=== PATIENT | female | born 1975 | race Caucasian/White ===

== ENCOUNTER 2019-10-19 15:41 | Emergency (ER) | payer OTHER, SELFPAY ==
--- NOTE | ~2019-10-19 | XR_ITS ---
EXAMINATION: XR chest 2V EXAM DATE: 10/19/2019 16:24 INDICATION: Mid chest pain, cough. History of bronchitis. TECHNIQUE: Frontal and lateral projections of the chest obtained and reviewed. There is no prior suzanna dy for comparison. FINDINGS: The lungs are clear. There are no pleural effusions. The cardiomediastinal silhouette is within normal limits. There is no pneumothorax suspected. The bones and soft tissues are unremarkab le. IMPRESSION: Normal chest x-ray exam. Reviewed, dictated and finalized at location A. IMPRESSION: Normal chest x-ray exam.
[2019-10-19 15:41] VITALS: BP 133/84; PULSE 99; RESP 18; TEMP 36.9; O2SAT 100
--- NOTE | 2019-10-19 15:47 | ECG_ITS ---
Measurements Intervals [place] Rate: 87 P: 13 ND: 162 QRS: 6 QRSD: 81 T: -4 QT: 344 QTc: 415 Interpretive Statements SINUS RHYTHM BORDERLINE T WAVE ABNORMALITY- ANT/INF LEADS BORDERLINE ECG Electronically Signed On 10-19-2019 16:02:53 CDT by Nimesh House D.O.
[2019-10-19 15:49] VITALS: BP 133/84; PULSE 99; RESP 18; TEMP 36.9; O2SAT 100
[2019-10-19 16:18] LABS: Basophils Percent Auto 0.5 % (0.2-1.2); Eosinophils Absolute Auto 0.1 K/mm3 (0-0.3); Eosinophils Percent Auto 2.1 % (0-4.4); Hematocrit 35.2 % (37.0-47.0); Hemoglobin 11.9 g/dL (12.0-15.0); Immature Granulocyte Absolute 0.02 K/mm3 (0.00-0.031); Immature Granulocyte Percent A 0.3 % (0-0.5); Lymphocytes Absolute Auto 2.01 K/mm3 (0.9-3.2); Lymphocytes Percent Auto 31.9 % (18.3-44.2); Mean Corpuscular HGB Conc 33.8 g/dl (32-36); Mean Corpuscular Hemoglobin 29.8 pg (26-34); Mean Corpuscular Volume 88.2 fl (80-100); Mean Platelet Volume 10.2 fl (7.4-10.4); Monocytes Absolute Auto 0.5 K/mm3 (0.1-0.6); Monocytes Percent Auto 7.8 % (2.6-8.5); Neutrophils Absolute Auto 3.6 K/mm3 (1.3-6.7); Neutrophils Percent Auto 57.4 % (45.5-73.1); Platelet Count Result 296 k/mm3 (150-375); Red Blood Count 3.99 M/mm3 (4.2-5.4); Red Cell Distribution Width 13.7 % (11.5-14.5); White Blood Count 6.3 K/mm3 (4.5-10.0)
[2019-10-19] MEDS: ASPIRIN 81 MG CHEWABLE TABLET 324 MG PO (16:20)
[2019-10-19 16:27] LABS: Prothrombin Time 12.6 Seconds (11.1-14.7)
[2019-10-19 16:28] LABS: Partial Thromboplastin Time 20.9 SECONDS (22.3-36.8)
[2019-10-19 16:30] LABS: Anion Gap 11.8 mmol/L (7-16); Blood Urea Nitrogen 19 mg/dL (7-17); Carbon Dioxide 26 mmol/L (22-30); Chloride 96 mmol/L (98-107); Estimated CRCL calculation 93 ml/min; Estimated Glomerular Filt Rate > 60; Glucose 447 mg/dL (65-105); Potassium 3.8 mmol/L (3.4-5.0); Sodium 130 mmol/L (137-145)
[2019-10-19 16:42] LABS: Troponin I < 0.012 ng/mL (0.000-0.034)
--- NOTE | 2019-10-19 16:59 | ED.CHESTPAIN ---
HPI - Chest Pain General Chief Complaint: Chest Pain Stated Complaint: cp Time Seen by Provider: 10/19/19 16:06 History of Present Illness HPI narrative: Patient is a 43-year-old female who presents ER with some chest discomfort. Central and in her side. Worse with deep breath. Initially started couple nights ago was associated with fever greater than 100.4 ?F. Denies runny nose/sore throat/productive cough and has had some cough. No known sick contacts. No sinus congestion. She is without nausea/vomiting. No exertional component to her discomfort. Has not taken any pain medication. Related Data Home Medications Medication Instructions Recorded Confirmed Ozempic 1 mg SUBCUT WEEKLY 02/06/19 02/15/19 aspirin [Adult Low Dose Aspirin] 81 mg PO DAILY 02/06/19 02/15/19 valacyclovir [Valtrex] 500 mg PO DAILY 02/06/19 02/15/19 amitriptyline 10/19/19 chlorthalidone 10/19/19 diclofenac sodium PO 10/19/19 10/19/19 insulin aspart (niacinamide) unit SUBCUT 10/19/19 10/19/19 [Fiasp Penfill U-100 Insulin] Allergies Allergy/AdvReac Type Severity Reaction Status Date / Time clindamycin Allergy Mild esphogitis Verified 10/19/19 15:53 pravastatin Allergy Mild Cramping Verified 10/19/19 15:53 of the Muscles rosuvastatin Allergy Mild Cramping Verified 10/19/19 15:53 of the Muscles Review of Systems Review of Systems: All systems reviewed & are unremarkable except as noted in HPI and below Constitutional: Constitutional: Denies chills, Denies fever(s) and Denies weakness ENT: Denies nasal congestion and Denies sore throat Cardiovascular: Cardiovascular: Reports chest pain, Denies rapid heart rate and Denies radiating jaw, neck or arm pain Respiratory: Respiratory: Reports cough and Denies dyspnea Gastrointestinal: Gastrointestinal: Denies abdominal pain, Denies nausea and Denies vomiting COUNT INCLUDES THE [facility] Past Medical History Medical History (Updated 10/19/19 @ 18:04 by Zenon Coelho MD) Anxiety Bronchitis Chronic GERD Diabetes Insulin pump Obesity (BMI 30-39.9) Psoriasis Surgical History Surgical History (Updated 10/19/19 @ 17:59 by Zenon Coelho MD) No pertinent past surgical history Social History Social History Alcohol intake: current Gender identity (if verbalized by the patient): Female Course Course Emergency Course: Unremarkable troponin and d-dimer. Patient now reports that she had a COVID exposure as a friend she has just sent her text message that she was positive. Last exposure to the patient was 12 days ago however given the patient's discomfort and her recent fever will go ahead and swab her now that she has a known exposure. Patient is aware that she should self isolate at home and follow-up with her PCP. Vital Signs Vital signs: Vital Signs Temperature 98.5 F 10/19/19 15:41 Pulse Rate 99 10/19/19 15:41 Respiratory Rate 18 10/19/19 15:41 Blood Pressure 133/84 10/19/19 15:41 Pulse Oximetry 100 10/19/19 15:41 Temperature 98.5 F 10/19/19 15:49 Pulse Rate 99 10/19/19 15:49 Respiratory Rate 18 10/19/19 15:49 Blood Pressure 133/84 10/19/19 15:49 Pulse Oximetry 100 10/19/19 15:49 MDM - Chest Pain Lab Data Result diagrams: 10/19/19 16:12 10/19/19 16:12 Labs: Lab Results 10/19/19 10/19/19 10/19/19 Range/Units 16:12 16:12 16:12 WBC 6.3 (4.5-10.0) K/mm3 RBC 3.99 L (4.2-5.4) M/mm3 Hgb 11.9 L (12.0-15.0) g/dL Hct 35.2 L (37.0-47.0) % MCV 88.2 (80-100) fl MCH 29.8 (26-34) pg MCHC 33.8 (32-36) g/dl RDW 13.7 (11.5-14.5) % Plt Count 296 (150-375) k/mm3 MPV 10.2 (7.4-10.4) fl Immature Gran % (Auto) 0.3 (0-0.5) % Neut % (Auto) 57.4 (45.5-73.1) % Lymph % (Auto) 31.9 (18.3-44.2) % Evans % (Auto) 7.8 (2.6-8.5) % Eos % (Auto) 2.1 (0-4.4) % Baso % (Auto) 0.5 (0.2-1.2
[2019-10-19] MEDS: KETOROLAC 30 MG/ML VIAL (*BKC) IV PUSH (17:28)
[2019-10-19 17:32] VITALS: BP 125/64; PULSE 81; PULSE 84; RESP 19; O2SAT 98; O2SAT 99
[2019-10-19 17:36] LABS: D Dimer 0.26 ug/mL (<0.48)
[2019-10-20 14:10] LABS: SARS-CoV-2 RNA PCR Negative
== END 2019-10-19 18:21 | disposition home or self-care (01) ==
PROVIDERS: Emergency Provider Emergency Medicine; PCP Family Medicine
DX: R09.1 Pleurisy (principal); Z20.828 Contact with and (suspected) exposure to other viral communicable diseases; F41.9 Anxiety disorder, unspecified; K21.9 Gastro-esophageal reflux disease without esophagitis; E11.9 Type 2 diabetes mellitus without complications; Z79.4 Long term (current) use of insulin; Z96.41 Presence of insulin pump (external) (internal); E66.9 Obesity, unspecified; Z68.29 Body mass index [BMI] 29.0-29.9, adult
CPT/HCPCS: 36415; 71046; 80048; 84484; 85025; 85380; 85610; 85730; 87635; 93005; 96374; 99284; A9270; C9803; J1885; U0003

== ENCOUNTER 2019-12-26 10:23 | Outpatient (CLI) | payer OTHER, SELFPAY ==
--- NOTE | ~2019-12-26 | XR_ITS ---
EXAMINATION: XR shoulder LT min 2V INDICATION: Left shoulder pain TECHNIQUE: Four views of the left shoulder are submitted. COMPARISON: None FINDINGS: Normal alignment. No fracture. Glenohumeral and acromioclavicular joint spaces are normal. Soft tissues are unremarkable. IMPRESSION: 1. No acute osseous abnormality. Reviewed, dictated and finalized at location A.
== END 2019-12-26 10:24 | disposition home or self-care (01) ==
LOC: ANHIMG 10:34
PROVIDERS: PCP Family Medicine; Visit Provider Physician Assistant
DX: M25.512 Pain in left shoulder (principal)
CPT/HCPCS: 73030

== ENCOUNTER 2020-02-14 06:58 | Outpatient (NON) | payer OTHER, SELFPAY ==
[2020-02-14 18:22] LABS: SARS-CoV-2 RNA PCR Negative
== END 2020-02-14 06:59 ==
LOC: ANHCOVIDDT 06:59
PROVIDERS: Visit Provider Physician Assistant
DX: Z20.828 Contact with and (suspected) exposure to other viral communicable diseases (principal); R09.89 Other specified symptoms and signs involving the circulatory and respiratory systems
CPT/HCPCS: 87635; C9803; U0003

== ENCOUNTER 2020-02-20 06:57 | Outpatient (NON) | payer OTHER, SELFPAY ==
[2020-02-20 23:33] LABS: SARS-CoV-2 RNA PCR Negative
== END 2020-02-20 06:58 ==
LOC: ANHCOVIDDT 07:11
PROVIDERS: Visit Provider Family Medicine
DX: Z20.828 Contact with and (suspected) exposure to other viral communicable diseases (principal)
CPT/HCPCS: 87635; C9803; U0003

== ENCOUNTER 2020-09-01 19:55 | Emergency (ER) | payer OTHER, MEDICAID, SELFPAY ==
[2020-09-01 20:07] VITALS: BP 147/86; PULSE 104; RESP 16; TEMP 36.7; O2SAT 100
--- NOTE | 2020-09-01 20:46 | ED.GENADULT ---
HPI - General Adult General Chief complaint: Skin/Abscess/Foreign Body Stated complaint: cyst on buttock/left armpit Time Seen by Provider: 09/01/20 20:46 Source: patient and RN notes reviewed Mode of arrival: ambulatory Limitations: no limitations History of Present Illness HPI narrative: 44-year-old female presents with complaints of redness, tenderness, and swelling to the left armpit for the past 30 days. ?Suzanne reports increasing symptoms over the past 3-4 days with a new area to LT buttock. Prid and warm compressions without relief. ?Tender to touch. ?No drainage. ?Denies history of skin abscess or MRSA. ?No fever or chills. ?No abdominal pain, nausea, and vomiting. ?LMP 4 days ago. ?Remains active. ?The patient reports she was diagnosed with COVID-19 in December 2019. ?The patient reports she is not waiting for the results of a COVID-19 lab test. ?The patient reports she does not have weakness, fatigue, or myalgia. ?The patient reports she does not have a new or worsening cough or shortness of breath. ?The patient reports she does not have any rhinorrhea, congestion, loss of taste, sore throat, and diarrhea. ?Denies recent traveling. ?Denies concerns for COVID-19 or exposures. ?At this time, the patient is not suspected of having COVID-19. Some parts of this dictation were generated by voice recognition software and may contain typographical and/or grammatical inaccuracies. Related Data Home Medications Medication Instructions Recorded Confirmed Ozempic 1 mg SUBCUT WEEKLY 02/06/19 02/15/19 aspirin [Adult Low Dose Aspirin] 81 mg PO DAILY 02/06/19 02/15/19 valacyclovir [Valtrex] 500 mg PO DAILY 02/06/19 02/15/19 amitriptyline 10/19/19 chlorthalidone 10/19/19 diclofenac sodium PO 10/19/19 10/19/19 insulin degludec [Tresiba SUBCUT 09/01/20 FlexTouch U-100] Allergies Allergy/AdvReac Type Severity Reaction Status Date / Time clindamycin Allergy Mild esphogitis Verified 10/19/19 15:53 pravastatin Allergy Mild Cramping Verified 10/19/19 15:53 of the Muscles rosuvastatin Allergy Mild Cramping Verified 10/19/19 15:53 of the Muscles Review of Systems Review of Systems: Narrative: CONSTITUTIONAL: Denies fever, chills, sweats. EYES: Denies visual changes, redness, discharge. ENT: Denies rhinorrhea, congestion, sore throat, otalgia. CARDIOVASCULAR: Denies chest pain, palpitations, edema. RESPIRATORY: Denies dyspnea, wheezing, cough. GASTROINTESTINAL: Denies abdominal pain, nausea, vomiting, diarrhea. SKIN: Denies rash or itching. Left armpit and left buttock with redness, tenderness, swelling. No drainage. MUSCULOSKELETAL: Denies acute back pain, joint pain, or myalgia. NEUROLOGIC: Denies numbness or focal weakness. PSYCHIATRIC: Denies anxiety or depression. All systems reviewed & are unremarkable except as noted in HPI and below. [facility] Past Medical History Medical History Anxiety Broken arm Bronchitis Chronic GERD Diabetes Insulin pump Obesity (BMI 30-39.9) Psoriasis Smoker Surgical History Surgical History (Updated 09/01/20 @ 21:05 by KEVIN Mccray) History of left salpingo-oophorectomy History of salpingoophorectomy No pertinent past surgical history Family History Family History Other Cerebrovascular accident Diabetes mellitus Family history of alcoholism Family history of arthritis Family history of gout Hypertension Social History Social History (Updated 09/01/20 @ 21:06 by KEVIN Mccray) Smoking packs per day: 1 Smoking cigarettes per day: 20.0 Years smoked: 20 Smoking pack-years: 20.00 Smoking status: Current every day smoker Tobacco type: cigarettes Second hand tobacco smoke exposure: No Alcohol intake: current Substance use: never Substance use type: does not use Living arrangements: with family Occupation/Education: occupation Gender identity (
== END 2020-09-01 21:15 | disposition home or self-care (01) ==
PROVIDERS: Emergency Provider Nurse Practitioner Family; PCP Family Medicine
DX: L02.31 Cutaneous abscess of buttock (principal); K21.9 Gastro-esophageal reflux disease without esophagitis; E11.9 Type 2 diabetes mellitus without complications; F17.210 Nicotine dependence, cigarettes, uncomplicated; E66.9 Obesity, unspecified; Z68.32 Body mass index [BMI] 32.0-32.9, adult
CPT/HCPCS: 99213; G0463

== ENCOUNTER 2021-05-15 16:48 | Observation (INO) | payer OTHER, MEDICAID, SELFPAY ==
[2021-05-15] VITALS (17 sets, daily range): BP systolic 129–153; BP diastolic 72–82; PULSE 55–83; RESP 13–25; TEMP 36–37.1; O2SAT 97–100; BMI 32.5
--- NOTE | ~2021-05-15 | CT_ITS ---
EXAMINATION: CTA chest PE protocol DATE: 05/15/2021 18:14 INDUSTRIAL CHEMISTRY TEACHER INDICATION: Dyspnea with chest pain TECHNIQUE: Computed tomographic angiography (CTA) of the chest was performed with 100 mL Omnipaque-35 0 intravenous contrast. The dose-length product was 475.99 mGy-cm. Maximum intensity projection 3D-re constructions of the aorta and other arteries were constructed by the technologist on a separate work station. Automated exposure control and iterative reconstruction technique were employed. COMPARISON: None. FINDINGS: Study limited for evaluation of the peripheral pulmonary arteries. No central pulmonary emb olism identified. There is mediastinal and right hilar lymphadenopathy. Trace pleural effusions. No s ignificant pericardial effusion. There are patchy groundglass opacities of the mid and lower lungs wi th interlobular septal thickening. No endobronchial lesions. No pneumothorax. Mild thoracic spondylos is. IMPRESSION: 1. No evidence for central pulmonary embolism. 2: Bilateral patchy groundglass opacities of the mid and lower lungs with interlobular septal thicken ing, suspicious for edema versus pneumonia. 3: Small pleural effusions. 4: Mediastinal and right hilar lymphadenopathy, likely reactive. Reviewed, dictated and finalized at location A. STRIAL CHEMISTRY TEACHER IMPRESSION: 1. No evidence for central pulmonary embolism. 2: Bilateral patchy groundglass opacities of the mid and lower lungs with inter lobular septal thickening, suspicious for edema versus pneumonia. 3: Small pleural effusions. 4: Mediastinal and right hilar lymphadenopathy, likely reactive.
--- NOTE | ~2021-05-15 | XR_ITS ---
1 XR chest 2V 05/15/2021 17:16 Indication: Chest pain Procedure: AP and lateral views of the chest Comparison: 10/19/2019 Findings: Borderline heart size. Bilateral perihilar and basilar airspace disease which may represent pneumonia or edema. No pleural effusion or pneumothorax. No acute osseous abnormality. PICC line tip in the SVC. Impression: 1: Bilateral perihilar and basilar airspace disease which may represent pneumonia or edema. Reviewed, dictated and finalized at location A. CIATE PROFESSOR OF PSYCHOLOGY Impression: 1: Bilateral perihilar and basilar airspace disease which may represent pneumon ia or edema.
--- NOTE | ~2021-05-15 | US_ITS ---
EXAMINATION: US venous doppler [facility] DATE: 05/16/2021 10:02 INDICATION: Lower limb edema. TECHNIQUE: Grayscale ultrasound images without and with compression and Doppler ultrasound images of the bilateral lower extremity veins were obtained. COMPARISON: None. FINDINGS: The visualized portions of right common femoral vein, profunda (deep) femoral vein, femoral vein, pop liteal vein, peroneal veins, posterior tibial veins, and greater saphenous vein outflow are patent. The visualized portions of left common femoral vein, profunda femoral vein, femoral vein, popliteal v ein, peroneal veins, posterior tibial veins, and greater saphenous vein outflow are patent. IMPRESSION: 1. No deep venous thrombosis. Reviewed, dictated and finalized at location A. CTOR GEOTHERMAL OPERATIONS
--- NOTE | 2021-05-15 16:52 | ECG_ITS ---
Measurements Intervals [place] Rate: 62 P: 38 MO: 151 QRS: -17 QRSD: 94 T: 56 QT: 415 QTc: 424 Interpretive Statements SINUS RHYTHM POSSIBLE RIGHT VENTRICULAR CONDUCTION DELAY [RSR (QR) IN V1/V2] NONSPECIFIC T-WAVE ABNORMALITY ABNORMAL ECG COMPARED TO ECG 10/19/2019 15:53:16 NO SIGNIFICANT CHANGES Electronically Signed On 05-16-2021 10:21:52 SHEET MILL SUPERVISOR by Mukesh Kaur M.D.
--- NOTE | 2021-05-15 17:00 | ED.CHESTPAIN ---
HPI - Chest Pain General Chief Complaint: Chest Pain Stated Complaint: SOB, CP Time Seen by Provider: 05/15/21 16:58 History of Present Illness HPI narrative: 45-year-old female presents to the emergency room with acute onset of shortness of breath left anterior chest pain. Patient describes the pain as sharp and stabbing and is reproducible with inspiration. Patient states that she was recently discharged from [facility] for cellulitis on her left great toe secondary to type 2 diabetes 6 days ago. Patient states she was hospitalized for 5 days at that time. States that she has recently been started on daptomycin, Unasyn, and gabapentin. 2 weeks ago patient was hospitalized at [facility] for the same complaint. Patient denies cardiac history. Related Data Home Medications Medication Instructions Recorded Confirmed Ozempic 1 mg SUBCUT WEEKLY 02/06/19 02/15/19 aspirin [Adult Low Dose Aspirin] 81 mg PO DAILY 02/06/19 02/15/19 valacyclovir [Valtrex] 500 mg PO DAILY 02/06/19 02/15/19 amitriptyline 10/19/19 chlorthalidone 10/19/19 diclofenac sodium PO 10/19/19 10/19/19 insulin degludec [Tresiba SUBCUT 09/01/20 FlexTouch U-100] Allergies Allergy/AdvReac Type Severity Reaction Status Date / Time clindamycin Allergy Mild esphogitis Verified 05/15/21 17:37 pravastatin Allergy Mild Cramping Verified 05/15/21 17:37 of the Muscles rosuvastatin Allergy Mild Cramping Verified 05/15/21 17:37 of the Muscles Review of Systems Review of Systems: CONSTITUTIONAL: Denies fever, chills, or sweats. EYES: Denies visual changes, redness, or discharge. ENT: Denies rhinorrhea, congestion, sore throat, or otalgia. CARDIOVASCULAR: Reports left anterior, reproducible chest pain, palpitations, or edema. RESPIRATORY: Reports shortness of breath. GASTROINTESTINAL: Denies abdominal pain, nausea, vomiting, or diarrhea. GENITOURINARY: Denies dysuria or hematuria. SKIN: Denies rash or itching. MUSCULOSKELETAL: Denies back pain, joint pain, or myalgia. NEUROLOGIC: Denies headache, numbness, dizziness, or weakness. PSYCHIATRIC: Denies anxiety or depression. [facility] Past Medical History Medical History Anxiety Broken arm Bronchitis Chronic GERD Diabetes Insulin pump Obesity (BMI 30-39.9) Psoriasis Smoker Surgical History Surgical History History of left salpingo-oophorectomy History of salpingoophorectomy No pertinent past surgical history Family History Family History Other Cerebrovascular accident Diabetes mellitus Family history of alcoholism Family history of arthritis Family history of gout Hypertension Social History Social History Smoking packs per day: 1 Smoking cigarettes per day: 20.0 Years smoked: 20 Smoking pack-years: 20.00 Smoking status: Current every day smoker Tobacco type: cigarettes Second hand tobacco smoke exposure: No Alcohol intake: current Substance use: never Substance use type: does not use Gender identity (if verbalized by the patient): Female Sexual Orientation (if Verbalized by the Patient): Straight or Heterosexual Exam Narrative: GENERAL: Well-appearing, well-nourished, and in no acute distress. HEAD: Normocephalic, atraumatic. EYES: PERRLA and EOMI. ENT: Nares clear, no rhinorrhea or epistaxis. Mucous membranes moist. Oropharynx without tonsillar hypertrophy exudate or other lesions. CHEST: Clear to auscultation. tachypnea. No wheezes rales or rhonchi HEART: Regular rate and rhythm. No murmur heard. Normal peripheral pulses. ABDOMEN: Soft, nontender, nondistended, normal active bowel sounds. EXTREMITIES: Normal range of motion. No edema. SKIN: Warm, dry, no rash. healing wound to lateral nail fold of left great toe NEURO: No focal deficits. Alert and oriented x3
[2021-05-15 17:08] LABS: Basophils Absolute Auto 0.1 K/mm3 (0.0-0.1); Basophils Percent Auto 0.9 % (0.2-1.2); Eosinophils Absolute Auto 0.3 K/mm3 (0-0.3); Eosinophils Percent Auto 5.2 % (0-4.4); Hematocrit 29.6 % (37.0-47.0); Hemoglobin 9.3 g/dL (12.0-15.0); Immature Granulocyte Absolute 0.01 K/mm3 (0.00-0.031); Immature Granulocyte Percent A 0.2 % (0-0.5); Lymphocytes Absolute Auto 1.54 K/mm3 (0.9-3.2); Lymphocytes Percent Auto 27.5 % (18.3-44.2); Mean Corpuscular HGB Conc 31.4 g/dl (32-36); Mean Corpuscular Hemoglobin 26.1 pg (26-34); Mean Corpuscular Volume 83.1 fl (80-100); Mean Platelet Volume 9.5 fl (7.4-10.4); Monocytes Absolute Auto 0.8 K/mm3 (0.1-0.6); Monocytes Percent Auto 14.1 % (2.6-8.5); Neutrophils Absolute Auto 2.9 K/mm3 (1.3-6.7); Neutrophils Percent Auto 52.1 % (45.5-73.1); Platelet Count Result 393 k/mm3 (150-375); Red Blood Count 3.56 M/mm3 (4.2-5.4); Red Cell Distribution Width 15.9 % (11.5-14.5); White Blood Count 5.6 K/mm3 (4.5-10.0)
[2021-05-15 17:18] LABS: Alanine Aminotransferase 49 U/L (4-35); Albumin Level 3.9 g/dL (3.5-5.1); Alkaline Phosphatase 93 U/L (38-126); Anion Gap 7 mmol/L (8-16); Aspartate Amino Transferase 49 U/L (14-36); Bilirubin,Total 0.2 mg/dL (0.2-1.3); Blood Urea Nitrogen 11 mg/dL (7-17); Calcium 8.6 mg/dL (8.4-10.2); Carbon Dioxide 25 mmol/L (22-30); Chloride 107 mmol/L (98-107); Estimated Glomerular Filt Rate > 60; Glucose 106 mg/dL (65-110); Lipase 152 U/L (23-300); Partial Thromboplastin Time 25.6 SECONDS (22.3-36.8); Potassium 3.6 mmol/L (3.4-5.0); Sodium 139 mmol/L (137-145)
[2021-05-15 17:30] LABS: Troponin I < 0.012 ng/mL (0.000-0.034)
--- NOTE | 2021-05-15 17:34 | PC.NURSE ---
Per CHINO Cason okay to use PICC line.
--- NOTE | 2021-05-15 17:39 | PC.NURSE ---
Per BROADCAST OPERATIONS DIRECTOR Yoav, no Aspirin needed.
[2021-05-15 18:36] LABS: Glucose Point of Care 82 mg/dl (65-105)
--- NOTE | 2021-05-15 18:45 | PM.IMHP ---
H&P: HPI History of Present Illness Date/Time: 05/15/21 18:45 Chief Complaint: Chest pain and shortness of breath. Narrative: This is a very pleasant 45-year-old female with insulin-dependent diabetes, hypertension, and hyperlipidemia who presented to the emergency department from home for evaluation of chest pain shortness of breath. Over the last several days she has noticed a wheezing and raspy sounding noise with inspiration and she also feels as though she cannot take in a deep breath. Approximately 2 hours prior to arrival to the ER she developed acute shortness of breath with mild pleuritic pain across her chest. She was simply sitting down when these symptoms occurred and in fact it was not long after hooking up in antibiotic to her PICC line, which she has been on for a little over a week for right 1st toe cellulitis. She was afebrile on arrival to the emergency department with a normal white blood cell count and a CRP of less than 1. Chest x-ray showed bilateral perihilar in basilar airspace disease which may represent pneumonia or edema as well as borderline heart size. A subsequent chest CTA showed no central pulmonary embolism, patchy bilateral ground-glass opacities suspicious for edema versus pneumonia, and small pleural effusions with likely reactive mediastinal and hilar lymphadenopathy. She gives no history to suggest pneumonia and she also denies dysphagia and concerns for aspiration. No sick contacts. She has not had exertional chest pain and has no known history of cardiac disease. Patient reports a normal stress test in January 2019. She has no history of venous thromboembolism and she denies calf pain and tenderness though she has noticed some mild bipedal edema recently which she attributed to recent hospitalizations for the aforementioned cellulitis in addition to being quite sedentary over the last several weeks due to set infection. No orthopnea or paroxysmal nocturnal dyspnea. Review of Systems Review of Systems: Twelve systems were reviewed. No syncope or near syncope. No cold or flu symptoms. Appetite has been good. No nausea or vomiting. She has had about 4 loose stools a day which she attributes to the antibiotic she has been taking. Glucose has been well controlled. No blurry vision. Jefferson is drinks a lot a water and that is unchanged. Except as documented, all other systems were reviewed and are negative. [facility] Past Medical History Medical History (Updated 05/15/21 @ 23:08 by Palma G. Gerling, PA-C) Anemia Anxiety Chronic GERD Dyslipidemia Hypertension Insulin dependent type 2 diabetes mellitus Psoriasis Surgical History Surgical History (Updated 05/15/21 @ 23:03 by Palma Hyde PA-C) History of left salpingo-oophorectomy History of open reduction and internal fixation (ORIF) procedure Right arm fracture as a child. Family History Family History Other Cerebrovascular accident Diabetes mellitus Family history of alcoholism Family history of arthritis Hypertension Social History Social History (Updated 05/15/21 @ 23:05 by Palma Hyde PA-C) Social History: Surrogate decision maker: William Dennis, sibling. Code status: Full code. Smoking packs per day: 1 Smoking cigarettes per day: 20.0 Years smoked: 20 Smoking pack-years: 20.00 Smoking status: Former smoker Tobacco type: cigarettes Second hand tobacco smoke exposure: No Alcohol intake: never Substance use: never Substance use type: does not use Meds Home Medications and Allergies Home Medications Medication Instructions Recorded Confirmed Type Ozempic 5 mg SUBCUT DAILY 02/06/19 05/15/21 History aspirin [Adult Low Dose Aspirin] 81 mg PO DAILY 02/06/19 05/15/21 History valacyclovir [Valtrex] 500 mg PO DAILY 02/06/19 02/15/19 History chlorthalidone 25 mg PO DAILY 10/19/19 05/15/21 History insulin degludec [Tresiba See Protocol SUBCUT ACINSU
--- NOTE | 2021-05-15 19:30 | PC.NURSE ---
Addendum entered by Zenon Byrnes RN 05/15/21 20:08: Handoff received from Brent FRANKLIN. Patient found sitting upright in bed. AAOx3. Equal and unlabored resp. Taking deep breaths. Reports feeling short of breath but states it has been normal for her. Skin is warm and dry. Calm and cooperative. Vitals WNL. Hospitalist at bedside. Currently receiving IV Abx at home for toe infection on R foot. Lunch tray and water brought to patient as per Yoav PBX REPAIRER request. New blood work drawn and COVID swab completed. Pending results and bed assignment. Original Note: Admitting hospitalist at bedside.
[2021-05-15 19:45] LABS: CRP 0.9 mg/dL (<1.0)
[2021-05-15 19:54] LABS: NT Pro B Type Natriuretic Pept 229 pg/mL (5-100); Troponin I < 0.012 ng/mL (0.000-0.034)
[2021-05-15 20:13] LABS: SARS-CoV-2 RNA PCR Negative
--- NOTE | 2021-05-15 21:13 | ADMGEN ---
This patient, Suzanne Womack, was admitted to IMU Room 209-01. Patient/family oriented to hospital policies and general routines including ID bracelet, bed and alarms, visiting hours, pain management, procedures, bathroom and other care routines, personal items, smoking policy, room service/diet, and visiting hours. Information on how to activate the Rapid Response Team has been discussed. Patient/Family are encouraged to report perceived risks to care and to ask questions if they do not understand what they are told or what they should do.
[2021-05-15 23:43] LABS: D Dimer 0.77 ug/mL (<0.48)
[2021-05-15] MEDS: INSULIN GLARGINE (*BKC) 100 UNITS/ML 15 UNITS SUB-Q (23:47)
[2021-05-15] MEDS: CENTRAL LINE FLUSH 10 ML IV PUSH (23:47)
[2021-05-15] MEDS: FUROSEMIDE INJ 40 MG/4 ML VIAL 20 MG IV PUSH (23:47)
[2021-05-15 23:54] LABS: Troponin I < 0.012 ng/mL (0.000-0.034)
[2021-05-15 23:56] LABS: Glucose Point of Care 271 mg/dl (65-105)
[2021-05-16] VITALS (11 sets, daily range): BP systolic 118–139; BP diastolic 46–79; PULSE 57–84; RESP 16–20; TEMP 35.9–36.7; O2SAT 94–100
[2021-05-16 00:14] LABS: Iron 22 ug/dL (37-170)
[2021-05-16] MEDS: AMPICILLIN SULB 1.5 GM/NS 50ML 1.5 GM/50 ML VIAL IVPB ×5 (00:14→23:17)
[2021-05-16] MEDS: GABAPENTIN 100 MG CAPSULE PO ×4 (00:15→17:09)
[2021-05-16] MEDS: ATORVASTATIN 40 MG TABLET PO ×2 (00:15→20:49)
[2021-05-16 00:27] LABS: Percent Iron Saturation 6 % (20-50)
[2021-05-16 00:51] LABS: Ferritin 7.05 ng/mL (6.24-137)
[2021-05-16 01:20] LABS: Folic Acid > 20.0 ng/mL (2.76->20)
[2021-05-16 01:20] LABS: Hemoglobin A1C 10.1 % (<5.7)
[2021-05-16 04:37] LABS: Hematocrit 25.5 % (37.0-47.0); Hemoglobin 8.1 g/dL (12.0-15.0); Mean Corpuscular HGB Conc 31.8 g/dl (32-36); Mean Platelet Volume 9.6 fl (7.4-10.4); Platelet Count Result 331 k/mm3 (150-375); Red Blood Count 3.11 M/mm3 (4.2-5.4); Red Cell Distribution Width 15.9 % (11.5-14.5); White Blood Count 5.7 K/mm3 (4.5-10.0)
[2021-05-16] MEDS: traMADol HCL (*CRX) 50 MG TABLET PO ×2 (04:40→08:30)
[2021-05-16 04:53] LABS: Alanine Aminotransferase 38 U/L (4-35); Albumin Level 3.3 g/dL (3.5-5.1); Alkaline Phosphatase 77 U/L (38-126); Anion Gap 5 mmol/L (8-16); Aspartate Amino Transferase 33 U/L (14-36); Bilirubin,Total 0.2 mg/dL (0.2-1.3); Blood Urea Nitrogen 8 mg/dL (7-17); Calcium 8.2 mg/dL (8.4-10.2); Carbon Dioxide 26 mmol/L (22-30); Chloride 107 mmol/L (98-107); Estimated CRCL calculation 106 ml/min; Estimated Glomerular Filt Rate > 60; Glucose 202 mg/dL (65-110); Magnesium 1.8 mg/dL (1.6-2.3); Potassium 3.6 mmol/L (3.4-5.0); Sodium 138 mmol/L (137-145)
[2021-05-16] MEDS: CENTRAL LINE FLUSH 10 ML IV PUSH ×3 (05:20→20:55)
[2021-05-16 08:10] LABS: Glucose Point of Care 160 mg/dl (65-105)
[2021-05-16] MEDS: SERTRALINE HCL 50 MG TABLET 100 MG PO (08:24)
[2021-05-16] MEDS: valACYclovir HCL 500 MG TABLET PO (08:24)
[2021-05-16] MEDS: CHLORTHALIDONE 25 MG TABLET PO (08:25)
[2021-05-16] MEDS: ASPIRIN 81 MG ENTERIC TABLET PO (08:25)
[2021-05-16] MEDS: ENOXAPARIN 40 MG/0.4 ML SYRINGE SUB-Q (08:25)
[2021-05-16] MEDS: INSULIN ASPART (*BKC) 100 UNITS/ML SUB-Q ×2 (12:05→17:09)
[2021-05-16] MEDS: ACETAMINOPHEN 325 MG TABLET 650 MG PO ×2 (12:06→23:21)
[2021-05-16 12:33] LABS: Glucose Point of Care 260 mg/dl (65-105)
--- NOTE | 2021-05-16 13:36 | P.PNIM_ITS ---
Progress Note: A&P Assessment and Plan (1) Chest pain: Code(s): R07.9 - Chest pain, unspecified Status: Acute Assessment and Plan: Etiology not entirely clear. 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 * Pneumonia seems less likely by history. * Most likely consistent with edema. She had some improvement with IV Lasix and will repeat dose today. Monitor urine output (3) Insulin dependent type 2 diabetes mellitus: Code(s): E11.9 - Type 2 diabetes mellitus without complications; Z79.4 - intermediate (current) use of insulin Status: Acute Assessment and Plan: Poorly controlled. A1c is 10.1 * Continue Accu-Cheks, sliding scale insulin and hypoglycemic protocol * Continue Lantus 15 units q.h.s. * Blood sugars are 150-250 today * Continue to monitor blood sugar trends and adjust medication regimen as needed * She was previously on insulin pump, she is on insulin pump at this time she is waiting a new one (4) Hypertension: Code(s): I10 - Essential (primary) hypertension Status: Acute Assessment and Plan: Blood pressures are well controlled. Last BP 125/73 * Continue chlorthalidone * Monitor blood pressure trends (5) Anemia: Code(s): D64.9 - Anemia, unspecified Status: Acute Assessment and Plan: Hemoglobin is low at 8.1 today * Iron panel reviewed and iron saturation is low * Will initiate iron supplementation. One time IV iron and then transition to oral iron supplement daily (6) Cellulitis of great toe, right: Code(s): L03.031 - Cellulitis of right toe Status: Acute Assessment and Plan: Being managed by infectious disease at [facility] * Continue IV daptomycin 400 mg daily * Continue IV Unasyn 1.5 g q.6 Subjective Date/time seen: 05/16/21 13:36 Interval history: Date of service: 05/16/2021 Suzanne Womack is a 45-year-old female with a history of hypertension, hyperlip idemia, type 2 diabetes mellitus who is seen in follow-up for chest discomfort. She is feeling much better today. She does complain of a frontal headache that she rates as 4/10 but gets worse if she gets up or moves around. She reports her chest pain is still present Neal but overall has improved substantially. For shortness of breath has improved. She does endorse dyspnea on exertion orth opnea. Denies PND. No nausea, vomiting, dizziness lightheadedness weakness. Reports pain in her right great toe and states that does have slight numbness. Denies per insert drainage. Review of Systems Review of Systems: All systems reviewed & are unremarkable except as noted in HPI and below Exam Narrative: General: well-nourished, well-appearing 45 year-old female, sitting up
--- NOTE | 2021-05-16 13:36 | PM.IMPN ---
Progress Note: A&P Assessment and Plan (1) Chest pain: Code(s): R07.9 - Chest pain, unspecified Status: Acute Assessment and Plan: Etiology not entirely clear. The patient feels as though she cannot take in a deep breath and reports some mild tightness and pleuritic discomfort that has improved CTA negative for PE Negative venous dopplers CXR showed bilateral airspace disease which is likely due to edema Discomfort is slowly improving Perhaps she is volume overloaded from fluids as she has been on snf IV antibiotics Troponin negative Echo with normal EF, trace TR, no wall abnormalities Analgesics available as needed (2) Abnormal chest CT: Code(s): R93.89 - Abnormal findings on diagnostic imaging of other specified body structures Status: Acute Assessment and Plan: Bilateral patchy ground-glass opacities noted in the mid and lower lungs, suspicious for edema versus pneumonia, in addition to small pleural effusions. Pneumonia seems less likely by history. Most likely consistent with edema. She had some improvement with IV Lasix and will repeat dose today. 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 A1c is 10.1 Continue Accu-Cheks, sliding scale insulin and hypoglycemic protocol Continue Lantus 15 units q.h.s. Blood sugars are 150-250 today Continue to monitor blood sugar trends and adjust medication regimen as needed She was previously on insulin pump, she is on insulin pump at this time she is waiting a new one (4) Hypertension: Code(s): I10 - Essential (primary) hypertension Status: Acute Assessment and Plan: Blood pressures are well controlled. Last BP 125/73 Continue chlorthalidone Monitor blood pressure trends (5) Anemia: Code(s): D64.9 - Anemia, unspecified Status: Acute Assessment and Plan: Hemoglobin is low at 8.1 today Iron panel reviewed and iron saturation is low Will initiate iron supplementation. One time IV iron and then transition to oral iron supplement daily (6) Cellulitis of great toe, right: Code(s): L03.031 - Cellulitis of right toe Status: Acute Assessment and Plan: Being managed by infectious disease at [facility] Continue IV daptomycin 400 mg daily Continue IV Unasyn 1.5 g q.6 Subjective Date/time seen: 05/16/21 13:36 Interval history: Date of service: 05/16/2021 Suzanne Womack is a 45-year-old female with a history of hypertension, hyperlipidemia, type 2 diabetes mellitus who is seen in follow-up for chest discomfort. She is feeling much better today. She does complain of a frontal headache that she rates as 4/10 but gets worse if she gets up or moves around. She reports her chest pain is still present Neal but overall has improved substantially. For shortness of breath has improved. She does endorse dyspnea on exertion orthopnea. Denies PND. No nausea, vomiting, dizziness lightheadedness weakness. Reports pain in her right great toe and states that does have slight numbness. Denies per insert drainage. Review of Systems Review of Systems: All systems reviewed & are unremarkable except as noted in HPI and below Exam Narrative: General: well-nourished, well-appearing 45 year-old female, sitting up in bed, comfortable, NARD Neuro: awake, alert and oriented x4, speech clear, no focal neuro deficits noted HEENMT: normocephalic, atraumatic, EOMI, sclerae anicteric, moist oral mucosa Respiratory: Bibasilar inspiratory crackles, nonlabored breathing Cardio: regular rate, regular rhythm with S1-S2 Abdomen: nondistended, normoactive bowel sounds, soft, nontender to palpation Extremities: no edema, erythema, or tenderness to palpation, right great toe with
[2021-05-16] MEDS: IRON SUCROSE COMPLEX 200 MG in SODIUM CHLORIDE 0.9% IV 50 ML 120 MG IVPB (15:18)
[2021-05-16] MEDS: FUROSEMIDE INJ 40 MG/4 ML VIAL 20 MG IV PUSH (15:24)
[2021-05-16] MEDS: DAPTOMYCIN IVPB (16:01)
[2021-05-16] MEDS: SODIUM CHLORIDE 0.9% IVPB (16:01)
[2021-05-16 16:34] LABS: Glucose Point of Care 270 mg/dl (65-105)
--- NOTE | 2021-05-16 16:34 | PC.NURSE ---
This patient, Suzanne Womack, was received from IMU on 05/16/21 at 1634. Patient/family oriented to unit policies and routines
[2021-05-16] MEDS: INSULIN GLARGINE (*BKC) 100 UNITS/ML 15 UNITS SUB-Q (20:53)
[2021-05-16 21:27] LABS: Glucose Point of Care 210 mg/dl (65-105)
--- NOTE | 2021-05-16 23:14 | ECHO_ITS ---
Patient Info Name: Suzanne Womack Age: 45 years : 1975 Gender: Female Ht: 64 in Wt: 189 lbs BSA: 2.00 m2 HR: 76 bpm BP: 118 / 46 mmHg Technical Quality: Good Exam Date: 05/16/2021 8:01 AM Exam Location: [facility] Patient Status: Outpatient Admit Date: 05/15/2021 Staff Ordering Physician: Palma Hyde PA-C Esthetician Spa: Francisco Toscano RDCS, RT Attending Provider: Brenda Yip PA-C Referring Physician: Mary Ellen FOWLER; Exam Type: CA echo doppler color flow Study Info Indications R07.9 - Chest pain, unspecified Complete two-dimensional, color flow and Doppler transthoracic echocardiogram is performed. Strain analysis performed. Summary 1. Complete two-dimensional, color flow and Doppler transthoracic echocardiogram is performed. 2. Left ventricular chamber dimension is normal. 3. Left ventricular systolic function is normal, estimated at 60-65%. 4. The left ventricular diastolic function is normal. 5. E/e' 9 is minimally elevated. 6. Global longitudinal strain is normal at -20.8%. 7. There is trace tricuspid valve regurgitation. Left Ventricle E/e' 9 is minimally elevated. Global longitudinal strain is normal at -20.8%. Left ventricular chamber dimension is normal. Left ventricular systolic function is normal, estimated at 60-65%. The left ventricular diastolic function is normal. Right Ventricle Right ventricular systolic function is normal and with normal TAPSE 2.6 cm. Right ventricular chamber dimension is normal. Left Atria Left atrial chamber dimension is normal. Right Atria Right atrial chamber dimension is normal. Aortic Valve The aortic valve is trileaflet. There is no aortic valve stenosis. There is no aortic valve regurgitation. Pulmonic Valve There is no pulmonic regurgitation. Mitral Valve There is no mitral valve stenosis. There is no mitral valve regurgitation. Tricuspid Valve There is trace tricuspid valve regurgitation. RVSP is not calculated due to an inadequate TR jet. Pericardium/Pleural There is no pericardial effusion. Inferior Vena Cava Normal inferior vena cava with >50% collapse upon inspiration consistent with normal right atrial pressure, 5 mmHg. Aorta The aortic root size at the sinus of Valsalva is normal. Left Ventricular Outflow Tract Name Value Normal LVOT 2D LVOT Diameter 2.0 cm LVOT Doppler LVOT Peak Gradient 5 mmHg LVOT Mean Gradient 2 mmHg LVOT VTI 25 cm LVOT VTI/AV VTI Ratio 0.7 LVOT Stroke Volume 77 ml LVOT CO 6.1 l/min LVOT CI 3.1 l/min/m2 Mitral Valve Name Value Normal MV Doppler MV Decel Bond 507 cm/s2
[2021-05-17] VITALS: BP 116/57; PULSE 72; PULSE 83; RESP 18; TEMP 36.8; O2SAT 96
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
[2021-05-17 04:00] VITALS: BP 111/60; PULSE 67; RESP 18; TEMP 36.8; O2SAT 99
[2021-05-17] MEDS: AMPICILLIN SULB 1.5 GM/NS 50ML 1.5 GM/50 ML VIAL IVPB (05:38)
[2021-05-17] MEDS: CENTRAL LINE FLUSH 10 ML IV PUSH ×2 (05:39→12:07)
[2021-05-17] MEDS: ACETAMINOPHEN 325 MG TABLET 650 MG PO (05:53)
[2021-05-17 06:45] LABS: Hematocrit 29.4 % (37.0-47.0); Hemoglobin 9.1 g/dL (12.0-15.0); Mean Corpuscular Hemoglobin 25.5 pg (26-34); Mean Corpuscular Volume 82.4 fl (80-100); Mean Platelet Volume 9.2 fl (7.4-10.4); Platelet Count Result 374 k/mm3 (150-375); Red Blood Count 3.57 M/mm3 (4.2-5.4); Red Cell Distribution Width 15.9 % (11.5-14.5); White Blood Count 4.8 K/mm3 (4.5-10.0)
[2021-05-17 06:50] LABS: Anion Gap 5 mmol/L (8-16); Blood Urea Nitrogen 11 mg/dL (7-17); Calcium 9.2 mg/dL (8.4-10.2); Carbon Dioxide 26 mmol/L (22-30); Chloride 105 mmol/L (98-107); Estimated CRCL calculation 88 ml/min; Estimated Glomerular Filt Rate > 60; Glucose 134 mg/dL (65-110); Potassium 3.8 mmol/L (3.4-5.0); Sodium 136 mmol/L (137-145)
[2021-05-17 07:43] LABS: Glucose Point of Care 128 mg/dl (65-105)
[2021-05-17 08:00] VITALS: PULSE 75
[2021-05-17 08:06] VITALS: BP 120/62; PULSE 73; RESP 16; TEMP 36.6; O2SAT 95
[2021-05-17] MEDS: ASPIRIN 81 MG ENTERIC TABLET PO (08:41)
[2021-05-17] MEDS: GABAPENTIN 100 MG CAPSULE PO ×2 (08:41→12:07)
[2021-05-17] MEDS: ENOXAPARIN 40 MG/0.4 ML SYRINGE SUB-Q (08:42)
[2021-05-17] MEDS: valACYclovir HCL 500 MG TABLET PO (08:42)
[2021-05-17] MEDS: CHLORTHALIDONE 25 MG TABLET PO (08:42)
[2021-05-17] MEDS: SERTRALINE HCL 50 MG TABLET 100 MG PO (08:42)
[2021-05-17 11:37] LABS: Glucose Point of Care 219 mg/dl (65-105)
[2021-05-17 12:00] VITALS: PULSE 92
--- NOTE | 2021-05-17 12:01 | P.DS_ITS ---
DS: Admitting Diagnosis Discharge Date 05/17/2021 Admitting Diagnosis Chest pain DS: Discharge Diagnosis Discharge Diagnosis (1) Chest pain: Code(s): R07.9 - Chest pain, unspecified Status: Acute Assessment and Plan: Presented with tightness and pleuritic discomfort. Most likely related to volume overload * CTA negative for PE * Negative venous dopplers * Acute coronary syndrome ruled out by negative troponins * CXR showed bilateral airspace disease which is likely due to edema * Echocardiogram reviewed and revealed normal systolic and diastolic function, no wall motion abnormalities, no valvular disease * Symptoms felt to be due to volume overload due to recent fluids from IV anti biotics. Patient also admits to excess oral fluid intake. She received 2 doses of IV furosemide and did have resolution of her symptoms * She will complete IV abx on 05/21/21. Discussed monitoring PO fluid intake. Did not feel continuation of diuretics was warranted given limited nature of the situation. She will follow up on 05/21 (2) Abnormal chest CT: Code(s): R93.89 - Abnormal findings on diagnostic imaging of other specified body structures Status: Acute Assessment and Plan: Bilateral patchy ground-glass opacities noted in the mid and lower lungs, suspicious for edema versus pneumonia, in addition to small pleural effusions. * Pneumonia seems unlikely given clinical history. Patient afebrile, no leukocytosis, no signs/symptoms to suggest underlying infection * Most likely secondary to edema. She had resolution of symptoms with Lasix as above. Lungs clear at time of discharge. (3) Insulin dependent type 2 diabetes mellitus: Code(s): E11.9 - Type 2 diabetes mellitus without complications; Z79.4 - long-term (current) use of insulin Status: Acute Assessment and Plan: Poorly controlled. A1c is 10.1 * Manage during admission with Accu-Cheks, sliding scale insulin and hypoglycemic protocol * Continue Lantus 15 units q.h.s. * She was previously on insulin pump, she is not on insulin pump at this time as she is awaiting a new one. Hopefully this will improve her overall blood sugar control * Blood sugars monitored during hospitalization and were acceptable in the 150- 250 range (4) Hypertension: Code(s): I10 - Essential (primary) hypertension Status: Acute Assessment and Plan: Blood pressures well controlled. Last BP 125/73 * Continue chlorthalidone * Monitor blood pressure trends (5) Anemia: Code(s): D64.9 - Anemia, unspecified Status: Acute Assessment and Plan: Hemoglobin 8.1-9.3 * Iron panel reviewed and iron saturation is low * Received 1 dose IV iron infusion and will continue p.o. iron supplement daily (6) Cellulitis of great toe, right: Code(s): L03.031 - Cellulitis of right toe Status: Acute Assessment and Plan: Being managed by infectious disease at [facility] * Continue IV daptomycin 400 mg daily * Continue IV Unasyn 1.5 g q.6 * Patient is current with [facility] and manages infusions on her home at home DS: Summary Hospital Course Hospital Course: Date of admission: 05/15/2021 Date of discharge: 05/17/2021 Suzanne Womack is a 45-year-old female with a history of hypertension, hyperlipidemia, type 2 diabetes mellitus presented to the emergency department on 05/15/2021 with complaints of shortness of breath and pleuritic chest pain. She was admitted to the hospitalist service for further evaluation managem
--- NOTE | 2021-05-17 12:01 | PM.DS ---
DS: Admitting Diagnosis Discharge Date 05/17/2021 Admitting Diagnosis Chest pain DS: Discharge Diagnosis Discharge Diagnosis (1) Chest pain: Code(s): R07.9 - Chest pain, unspecified Status: Acute Assessment and Plan: Presented with tightness and pleuritic discomfort. Most likely related to volume overload CTA negative for PE Negative venous dopplers Acute coronary syndrome ruled out by negative troponins CXR showed bilateral airspace disease which is likely due to edema Echocardiogram reviewed and revealed normal systolic and diastolic function, no wall motion abnormalities, no valvular disease Symptoms felt to be due to volume overload due to recent fluids from IV antibiotics. Patient also admits to excess oral fluid intake. She received 2 doses of IV furosemide and did have resolution of her symptoms She will complete IV abx on 05/21/21. Discussed monitoring PO fluid intake. Did not feel continuation of diuretics was warranted given limited nature of the situation. She will follow up on 05/21 (2) Abnormal chest CT: Code(s): R93.89 - Abnormal findings on diagnostic imaging of other specified body structures Status: Acute Assessment and Plan: Bilateral patchy ground-glass opacities noted in the mid and lower lungs, suspicious for edema versus pneumonia, in addition to small pleural effusions. Pneumonia seems unlikely given clinical history. Patient afebrile, no leukocytosis, no signs/symptoms to suggest underlying infection Most likely secondary to edema. She had resolution of symptoms with Lasix as above. Lungs clear at time of discharge. 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 A1c is 10.1 Manage during admission with Accu-Cheks, sliding scale insulin and hypoglycemic protocol Continue Lantus 15 units q.h.s. She was previously on insulin pump, she is not on insulin pump at this time as she is awaiting a new one. Hopefully this will improve her overall blood sugar control Blood sugars monitored during hospitalization and were acceptable in the 150-250 range (4) Hypertension: Code(s): I10 - Essential (primary) hypertension Status: Acute Assessment and Plan: Blood pressures well controlled. Last BP 125/73 Continue chlorthalidone Monitor blood pressure trends (5) Anemia: Code(s): D64.9 - Anemia, unspecified Status: Acute Assessment and Plan: Hemoglobin 8.1-9.3 Iron panel reviewed and iron saturation is low Received 1 dose IV iron infusion and will continue p.o. iron supplement daily (6) Cellulitis of great toe, right: Code(s): L03.031 - Cellulitis of right toe Status: Acute Assessment and Plan: Being managed by infectious disease at [facility] Continue IV daptomycin 400 mg daily Continue IV Unasyn 1.5 g q.6 Patient is current with [facility] and manages infusions on her home at home DS: Summary Hospital Course Hospital Course: Date of admission: 05/15/2021 Date of discharge: 05/17/2021 Suzanne Womack is a 45-year-old female with a history of hypertension, hyperlipidemia, type 2 diabetes mellitus presented to the emergency department on 05/15/2021 with complaints of shortness of breath and pleuritic chest pain. She was admitted to the hospitalist service for further evaluation management. Please see above for further details. Her symptoms resolved and she was feeling back to her usual state of health. She requested discharge home. Given her overall improvement, she was determined to no longer require inpatient care and was felt to be stable for discharge. We discussed worrisome signs and symptoms for which to return and she was discharged in hemodynamically stable condition on 05/17/2021. Status at Discharge
[2021-05-17 12:07] VITALS: BP 126/69; PULSE 80; RESP 18; TEMP 36.6; O2SAT 96
[2021-05-17] MEDS: INSULIN ASPART (*BKC) 100 UNITS/ML SUB-Q (12:07)
== END 2021-05-17 14:05 | disposition home health service (06) ==
LOC: ANHED 19:30 → ANHIMU 20:36 → ANH2MED 05-17 12:00 → ANHIMU 05-19 17:12
PROVIDERS: Emergency Medicine; Physician Assistant; Admitting Provider Internal Medicine; Emergency Provider Nurse Practitioner Family; PCP Family Medicine; Visit Provider Family Medicine
DX: R07.9 Chest pain, unspecified (principal); R91.8 Other nonspecific abnormal finding of lung field; R06.02 Shortness of breath; L03.031 Cellulitis of right toe; R60.0 Localized edema; D64.9 Anemia, unspecified; E11.9 Type 2 diabetes mellitus without complications; E78.5 Hyperlipidemia, unspecified; I10 Essential (primary) hypertension; K21.9 Gastro-esophageal reflux disease without esophagitis; F17.210 Nicotine dependence, cigarettes, uncomplicated; Z79.82 Long term (current) use of aspirin; Z79.4 Long term (current) use of insulin; Z20.822 Contact with and (suspected) exposure to COVID-19
CPT/HCPCS: 36415; 71046; 71275; 80048; 80053; 82607; 82728; 82746; 82948; 83036; 83540; 83550; 83690; 83735; 83880; 84443; 84484; 85025; 85027; 85380; 85610; 85730; 86140; 93005; 93306; 93970; 96365; 96366; 96372; 96374; 96375; 99285; A9270; C9803; G0378; J0295; J0878; J1650; J1756; J1815; J1940; Q9967; U0003; U0005

== ENCOUNTER 2023-01-22 09:26 | Outpatient (CLI) | payer OTHER, MEDICAID, SELFPAY ==
--- NOTE | 2023-01-22 15:41 | ECG_ITS ---
Measurements Intervals [place] Rate: 80 P: 6 [place]: 165 QRS: 5 QRSD: 90 T: -10 QT: 366 QTc: 423 Interpretive Statements SINUS RHYTHM DELAYED PRECORDIAL R/S TRANSITION LOW QRS VOLTAGE IN PRECORDIAL LEADS BORDERLINE T WAVE ABNORMALITY- ANTEROLAT/INF LEADS BASELINE ARTIFACT- I, II, AVR, AVL, AVF BORDERLINE ECG COMPARED TO ECG 05/15/2021 16:55:40 NO SIGNIFICANT CHANGES Electronically Signed On 01-22-2023 16:22:41 PASTE MIXER LIQUID by Nimesh House D.O.
[2023-01-22 16:09] LABS: Hematocrit 35.2 % (37.0-47.0); Hemoglobin 11.5 g/dL (12.0-15.0)
[2023-01-22 16:17] LABS: Alanine Aminotransferase 26 U/L (6-35); Albumin Level 3.8 g/dL (3.5-5.1); Alkaline Phosphatase 67 U/L (38-126); Anion Gap 9 mmol/L (8-16); Aspartate Amino Transferase 28 U/L (14-36); Bilirubin,Total 0.4 mg/dL (0.2-1.3); Blood Urea Nitrogen 12 mg/dL (7-17); Calcium 9.1 mg/dL (8.4-10.2); Carbon Dioxide 26 mmol/L (22-30); Chloride 99 mmol/L (98-107); Estimated Glomerular Filt Rate > 60; Glucose 296 mg/dL (65-110); Potassium 3.9 mmol/L (3.4-5.0); Sodium 134 mmol/L (137-145)
== END 2023-01-22 09:27 | disposition home or self-care (01) ==
PROVIDERS: Anesthesiology; PCP Family Medicine; Visit Provider Obstetrics & Gynecology
DX: Z01.812 Encounter for preprocedural laboratory examination (principal); Z01.810 Encounter for preprocedural cardiovascular examination; R10.2 Pelvic and perineal pain; I10 Essential (primary) hypertension; E78.5 Hyperlipidemia, unspecified; Z86.2 Personal history of diseases of the blood and blood-forming organs and certain disorders involving the immune mechanism
CPT/HCPCS: 36415; 80053; 85014; 85018; 86850; 86900; 86901; 93005

== ENCOUNTER 2023-01-29 09:37 | Observation (INO) | payer OTHER, MEDICAID, SELFPAY ==
[2023-01-21 10:02] VITALS: BMI 35.3
--- NOTE | 2023-01-21 10:18 | PC.NURSE ---
Report to the Outpatient Waiting Room, entrance under the green pavilion located off [facility], at time 6:00 on date 01/27/23. Planned Procedure Time: 7:30. Time changes happen often and if your time is changed the preop area will call you the afternoon before. - You and your visitor will be asked to self-screen and do not enter if you have any COVID symptoms. - A mask is optional within the hospital at this time. Patients may have clear liquids (water, carbonated beverages, clear teas, apple juice) until 3 hours prior to surgery (4:30) with a maximum of 20 ounces. - No food from midnight until time of surgery Take the following medications with a SIP of water the morning of surgery: PREGABALIN, SERTRALINE, VALACYCLOVIR. CONTINUE NORMAL BASAL RATE ON INSULIN PUMP. DO NOT STOP ANY OF YOUR OTHER PRESCRIPTION MEDICATIONS PRIOR TO SURGERY ?EXCEPT THE FOLLOWING Medications to discontinue per physician: VITAMINS/SUPPLEMENTS Date to take last dose: 01/23/23 Please no make-up, nail icelandic, hairspray, perfume, deodorant, or body powder the day of surgery. No jewelry (including any body piercings) or valuables the day of surgery, leave them at home. Please take a shower or bath the night before, or the morning of, surgery with an antibacterial soap. Wear comfortable, loose fitting clothing. - Jewelry must be removed prior to entering the operating room. Rings and piercings that are not removed may be cut off. - The hospital will not accept responsibility for valuables. - Please leave all valuables, including medications, at home the day of surgery. If you are going home after surgery, a licensed stock driver must drive you home. - NO public transportation without another adult if you receive anesthesia. - We recommend that an adult stay with you for 24 hours following discharge. - We also recommend that you do not drive, make important decision, drink alcoholic beverages, or take any drugs that were not prescribed by your health care provider for at least 24 hours after your discharge time. Follow any additional instructions given to you from your surgeon. If you or anyone in your household have experienced Covid symptoms in the past week, please notify your surgeon or the nurse liaison at the phone number below for possible testing. Telephone instructions given to PT - CARO FLOWERS and asked if any additional questions and then verbalized understanding. Patient advised to call surgeon office or pre surgery nurse liaison [phone] if any additional questions.
[2023-01-27] VITALS (16 sets, daily range): BP systolic 116–165; BP diastolic 59–93; PULSE 52–88; RESP 12–20; TEMP 36.2–37; O2SAT 85–100
--- NOTE | 2023-01-27 06:38 | WPDANESEPPF ---
Anes - Initial Pre Proc Eval Procedure: Operation Date: 01/27/23 07:30 Proposed Procedures p Total Laparoscopic Hysterectomy with Bilateral Salpingo-oophorectomy - Olu Skelton MD Date/Time: 01/27/23 06:38 Surgeon: lOu Skelton MD Pre Op Diagnosis: pelvic pain Patient Data Age: 47 Gender: F Height: 1.63 m Weight: 93.45 kg Allergies Allergy/AdvReac Type Severity Reaction Status Date / Time clindamycin Allergy Mild esphogitis Verified 01/21/23 10:03 pravastatin Allergy Mild Cramping Verified 01/21/23 10:03 of the Muscles rosuvastatin Allergy Mild Cramping Verified 01/21/23 10:03 of the Muscles latex Allergy Rash Verified 01/21/23 10:05 Home Medications Medication Instructions Recorded Confirmed Type aspirin 81 mg tablet,delayed 81 mg PO DAILY 02/06/19 01/21/23 History release (Adult Low Dose Aspirin) valacyclovir 500 mg tablet 500 mg PO DAILY 02/06/19 01/21/23 History (Valtrex) chlorthalidone 25 mg tablet 25 mg PO DAILY 10/19/19 01/21/23 History atorvastatin 40 mg tablet (Lipitor) 40 mg PO HS 05/15/21 01/21/23 History sertraline 100 mg tablet (Zoloft) 100 mg PO QAM 05/15/21 01/21/23 History diclofenac sodium 75 mg 75 mg PO BID 12/08/22 01/21/23 History tablet,delayed release ergocalciferol (vitamin D2) 1,250 1,250 mcg PO MONTHLY 12/08/22 01/21/23 History mcg (50,000 unit) capsule estradiol 2 mg tablet 2 mg PO DAILY 12/08/22 01/21/23 History insulin aspart U-100 100 unit/mL 0.12 unit continuous subcutaneous 12/08/22 01/21/23 History subcutaneous solution (Novolog infusion DAILY U-100 Insulin aspart) pregabalin 75 mg capsule 75 mg PO DAILY #90 caps 12/08/22 01/21/23 Rx Lactobacillus acidophilus 500 500 mmu cells PO DAILY 01/21/23 01/21/23 History million cell tablet multivitamin 1 tablet PO DAILY 01/21/23 01/21/23 History Patient hx anesthesia problems: none Family hx anesthesia problems: none Results Review: All pre-operative results and documents have been reviewed as part of the pre-operative evaluation. [facility] Past Medical History Medical History Anemia Anxiety Cellulitis of great toe, right Chest pain Chronic GERD Degenerative disc disease, lumbar Depression Dyslipidemia Hypertension Insulin dependent type 2 diabetes mellitus Psoriasis Vitamin D deficiency Surgical History Surgical History History of left salpingo-oophorectomy History of open reduction and internal fixation (ORIF) procedure Right arm fracture as a child. Family History Family History Other Cerebrovascular accident Diabetes mellitus Family history of alcoholism Family history of arthritis Hypertension Social History Social History Social History: Surrogate decision maker: William Choub, sibling. Code status: Full code. Smoking packs per day: 1 Smoking cigarettes per day: 20.0 Years smoked: 32 Smoking pack-years: 32.00 Smoking status: Current every day smoker Tobacco type: cigarettes Second hand tobacco smoke exposure: No Alcohol intake: current Alcohol use details: 4/MONTH Substance use: never Substance use type: does not use Living arrangements: with family Additional living arrangements comments: CHILDREN Occupation/Education: occupation Spiritual care concerns: No Anes - Eval Final PreProcedure Day of Procedure 01/27/23 06:38 Patient weight: obese Heart: regular rate and rhythm Lungs: clear to auscultation Airway: Mallampati scale class II Neurological: alert and oriented Last oral intake: >/= 8 hours ASA classification: III Emergent: no Anesthetic plan: proceed Anesthesia type and monitoring: general ETT and standard monitoring Results Review: All pre-operative results and documents have been r
[2023-01-27 06:57] LABS: Glucose Point of Care 309 mg/dl (65-105)
[2023-01-27] MEDS: ACETAMINOPHEN 500 MG TABLET 1000 MG PO (07:15)
[2023-01-27] MEDS: KETOROLAC 15 MG/ML VIAL (*BKC) IV PUSH (07:15)
[2023-01-27] MEDS: LACTATED RINGERS 1,000 ML 30 ML IV CONT ×3 (07:15→10:55)
[2023-01-27] MEDS: SCOPOLAMINE 1.5 MG PATCH TRANSDERM (07:15)
--- NOTE | 2023-01-27 07:25 | WPDHPUPDATE1 ---
History and Physical Update Update Date/Time: 01/27/23 07:25 History and Physical has been reviewed, including an updated exam of the patient. There are NO changes in the patient's condition. Risks, benefits, and alternatives have been discussed and questions answered. Patient agrees to proceed with procedure.
[2023-01-27] MEDS: ceFAZolin 2 GM/D5W 50 ML 2 GM/50 ML BAG IVPB (07:30)
--- NOTE | 2023-01-27 07:48 | SUR.PREOP ---
PT HAS INSULIN PUMP ON AND TAPED TO HER ABDOMEN. HER DEVICE SAYS HER SUGER IS 250. I CHECKED WITH OUR DEVICE, 309. PT GAVE HERSELF [address] RITTER AWARE OF ALL OF THIS. NO ORDERS AT THIS TIME.
[2023-01-27] MEDS: ceFAZolin SODIUM 1 GM VIAL (08:13)
[2023-01-27 10:27] LABS: Glucose Point of Care 310 mg/dl (65-105)
[2023-01-27 10:27] LABS: Glucose Point of Care 218 mg/dl (65-105)
[2023-01-27] MEDS: fentaNYL CITRATE INJ (*CRX) 100 MCG/2 ML VIAL 25 MCG IV PUSH ×8 (10:28→10:59)
[2023-01-27] MEDS: PROMETHAZINE HCL 25 MG/ML AMPUL 12.5 MG IV PUSH ×3 (10:38→23:22)
[2023-01-27] MEDS: HYDROmorphone HCL INJ (*CRX) 1 MG/ML SYR 0.5 MG IV PUSH ×4 (11:10→12:47)
--- NOTE | 2023-01-27 12:19 | SUR.PHASEI ---
1130 MEETS ANESTHESIA DISCHARGE CRITERIA. NO ADMIT POST OP ORDERS NOTED FROM DR ANGUIANO. ON HOLD FOR THE FLOOR.
--- NOTE | 2023-01-27 12:41 | W.PM.PROC2 ---
Procedure Note - Detailed Date of Procedure 01/27/23 Pre-op Diagnosis pelvic pain Post-op Diagnosis Same (With dense pelvic adhesions) Procedure Performed Total laparoscopic hysterectomy and right oophorectomy., adhesiolysis 45 minutes Surgeon Olu Skelton MD Anesthesia General Findings Dense pelvic adhesions throughout the left adnexa from uterine fundus to uterine artery and bladder.? Absent fallopian tubes, absent left ovary, normal right ovary Description of Procedure This patient was taken to the operating room.? She was prepped and draped in the dorsal lithotomy position after induction of general anesthesia.? The uterine manipulator and Rsos cup were placed.? This was done with a speculum and tenaculum.? The speculum was placed.? The cervix was grasped with a tenaculum.? The stay sutures were placed at 3 and 9:00 a.m..? The stay sutures of 0 Vicryl were brought through the appropriately sized Ross cup.? The tip of the RHIANNON manipulator was placed in the intrauterine cavity.? The cup was slid into place around the cervix and into the fornices.? It was locked into place.? The sutures were then wrapped around the handle and tied under tension. A 5 mm skin incision was made in the left upper quadrant the abdomen.? A 5 mm trocar was inserted into the intrauterine cavity under direct visualization of the scope.? Pneumoperitoneum was achieved.? A left lower quadrant 11 mm incision was made with scalpel.? An 11 mm trocar was inserted into the anterior abdominal cavity under direct visualization the scope.? A 5 mm infraumbilical incision was made with a scalpel and a 5 mm trocar was inserted the intra-abdominal cavity under direct visualization of the scope. Bilateral ureteral lysis was performed.? This was done from the pelvic brim down to the uterine artery.? This was done with careful dissection using sharp and blunt dissection.? The infundibulopelvic ligaments were isolated after identification of the ureters bilaterally. ?These infundibulopelvic ligaments were cauterized and transected with LigaSure cautery.? The para ovarian tissue was cauterized and transected with LigaSure cautery on the right.? Moving around the ovary into the broad ligament the tissue was cauterized transected with LigaSure cautery.? The round ligaments were cauterized transected with LigaSure cautery this was all done in a bilateral fashion.? In a stepwise fashion along the lateral aspects of the uterus the round ligament and broad ligaments were cauterized transected down to the level of the uterine arteries.? A bladder flap was created in the bladder was moved distally to the end of the cervix and over the Ross cup.? The bilateral uterine arteries were cauterized and transected.? Colpotomy was then performed.? In a circumferential fashion the vagina was transected using unipolar cautery.? The incision was made down on the Ross cup.? The uterus, cervix, fallopian tubes and ovaries were taken out through the vagina.? A pneumo occluder was placed in the vagina. On the left side extensive adhesiolysis was performed using sharp and blunt dissection along with LigaSure cautery and monopolar cautery.? This was done to separate the uterus from the lateral pelvic sidewall, separate the ureter from the paracervical tissue, and 2 skeletonize the cervix. The vaginal cuff was closed with a 0 V lock suture in a running fashion.? The pelvis was irrigated with copious amounts antibiotic irrigation.? The ureters were again examined and found to be intact and flowing freely under the uterine arteries into the bladder.? The bladder was intact.? It was examined directly.? The vagina was irrigated with Betadine solution after removal of the Pneumo occluder.? The patient was taken to recovery room.? She was stable condition.? Sponge lap and needle counts were correct x2. Estimated Blood Loss -20.0 Pathology Yes Complications No immediate complications Condition Stable Disposition PACU
--- NOTE | 2023-01-27 12:58 | PC.NURSE ---
This patient, Suzanne Womack, was received from PACU on 01/27/23 at 1258. Patient/family oriented to unit policies and routines.
--- NOTE | 2023-01-27 13:29 | PC.NURSE ---
Per patient, her Basal rate for her Insulin pump is 0.850 units. She gives herself additional bolus of insulin if blood sugar over 150, for every increment of 50, she receives 1 unit of insulin via her insulin pump.
--- NOTE | 2023-01-27 13:50 | PC.NURSE ---
Per patient, she or her daughter in law, Carter, have signed the Insulin Infusion Pump Therapy Patient Agreement, copy placed on chart. Also the Glucose Management sheet has been left at the pt's bedside to be completed as needed, pt and family aware to let the RN know when she gives herself a bolus of insulin through her pump or if they have any questions or concerns.
[2023-01-27] MEDS: LACTATED RINGERS 1,000 ML 100 ML IV CONT ×2 (14:09→23:25)
[2023-01-27] MEDS: ONDANSETRON INJ 4 MG/2 ML VIAL IV PUSH ×2 (14:13→21:21)
[2023-01-27] MEDS: KETOROLAC 30 MG/ML VIAL (*BKC) IV PUSH ×2 (14:22→23:21)
[2023-01-27 15:25] LABS: Glucose Point of Care 331 mg/dl (65-105)
[2023-01-27] MEDS: diphenhydrAMINE HCl INJ 50 MG/ML VIAL 25 MG IV PUSH ×2 (16:28→21:21)
[2023-01-27 16:31] LABS: Glucose Point of Care 273 mg/dl (65-105)
--- NOTE | 2023-01-27 20:45 | PC.NURSE ---
1400 Patients glucose level on her monitor reads 283, pt gave herself 3 units of insulin via her pump 1515 Patients glucose monitor reads 291, RN to check hospital's glucometer 1521 Hospital glucometer reads [address] Skelton (See provider communication note) Advised MD that @ 1400 pt's glucose was 283, she had given herself 3 units of insulin via her pump, it has now been almost 90 mins and no change in her blood glucose via her pump monitor. RN checked glucose with hospital glucometer and it read 331 @ 1521. Per MD patient is to give herself 5 units of insulin via her pump and call if any concerns. 1542 Patient's daughter in law is able to give her the 5 units of insulin via her pump due to pt being nauseous and dry heaving. 1613 RN checked patient's glucose with hospital monitor, it read 273, will continue to monitor. 1701 Patient continues with dry heaves, given 12.5mg of Phenergan IV push, her scopolamine patch fell off, pt refused another to replace it. 1715 Pt resting comfortably, pulse ox 100% see vitals for add'l 1719 Pulse ox goes to 85%, pt put on 2 L of oxygen via nasal canula 1730 Pt resting comfortably 1750 Pt has dry heaves, patient's sister has arrived and is concerned about her diabetes and would like a consult with the hospitalist. RN to call Dr. Skelton and notify hospitalist. [address] Jacinto's cell # that a consult was put in. 1814 Spoke with Tram Operator, advised RN to call Grazyna Culver NP #[phone] (See provider communication note)
[2023-01-27 21:13] LABS: Basophils Percent Auto 0.2 % (0.2-1.2); Eosinophils Percent Auto 0.1 % (0-4.4); Hematocrit 36.8 % (37.0-47.0); Hemoglobin 11.9 g/dL (12.0-15.0); Immature Granulocyte Absolute 0.04 K/mm3 (0.00-0.031); Immature Granulocyte Percent A 0.4 % (0-0.5); Lymphocytes Absolute Auto 0.71 K/mm3 (0.9-3.2); Lymphocytes Percent Auto 6.7 % (18.3-44.2); Mean Corpuscular HGB Conc 32.3 g/dl (32-36); Mean Corpuscular Hemoglobin 30.6 pg (26-34); Mean Corpuscular Volume 94.6 fl (80-100); Mean Platelet Volume 9.6 fl (7.4-10.4); Monocytes Absolute Auto 0.4 K/mm3 (0.1-0.6); Monocytes Percent Auto 3.3 % (2.6-8.5); Neutrophils Absolute Auto 9.5 K/mm3 (1.3-6.7); Neutrophils Percent Auto 89.3 % (45.5-73.1); Platelet Count Result 374 k/mm3 (150-375); Red Blood Count 3.89 M/mm3 (4.2-5.4); Red Cell Distribution Width 13.3 % (11.5-14.5); White Blood Count 10.7 K/mm3 (4.5-10.0)
[2023-01-27 21:22] LABS: Alanine Aminotransferase 27 U/L (6-35); Albumin Level 3.7 g/dL (3.5-5.1); Alkaline Phosphatase 71 U/L (38-126); Anion Gap 9 mmol/L (8-16); Aspartate Amino Transferase 35 U/L (14-36); Bilirubin,Total 0.5 mg/dL (0.2-1.3); Blood Urea Nitrogen 18 mg/dL (7-17); Carbon Dioxide 26 mmol/L (22-30); Chloride 103 mmol/L (98-107); Estimated CRCL calculation 93 ml/min; Estimated Glomerular Filt Rate > 60; Glucose 292 mg/dL (65-110); Magnesium 1.8 mg/dL (1.6-2.3); Potassium 4.4 mmol/L (3.4-5.0); Sodium 138 mmol/L (137-145)
[2023-01-28 03:50] VITALS: BP 147/62; PULSE 51; RESP 22; TEMP 36.8; O2SAT 100
[2023-01-28] MEDS: ONDANSETRON INJ 4 MG/2 ML VIAL IV PUSH ×2 (04:05→19:00)
[2023-01-28] MEDS: diphenhydrAMINE HCl INJ 50 MG/ML VIAL 25 MG IV PUSH (04:05)
--- NOTE | 2023-01-28 05:37 | PC.NURSE ---
01/27/23 204 Implanted insulin pump reads blood sugar of 264 0358 Implanted insulin pump reads blood sugar of 267
--- NOTE | 2023-01-28 06:53 | PC.NURSE ---
01/27/232039 Placed call and left message to hospitalist Grazyna Culver NP regarding clarification of orders for glucose management and insulin pump, and to report continued nausea and dry heaving. No return call received.
[2023-01-28 07:50] VITALS: BP 147/59; PULSE 61; RESP 16; TEMP 37; O2SAT 100
--- NOTE | 2023-01-28 08:26 | PM.GYNPNOP ---
SOLID DIE CUTTER - A/P Postoperative Procedures: Procedures Operation Date: 01/27/23 07:30 Actual Procedure Side Surgeon p Total Laparoscopic Hysterectomy with Right Oophorectomy, 45 minutes Lysis of Adhesions Right Olu Skelton MD Postoperative day: 1 Postoperative status: doing well ( intractable nausea and vomiting, to administer Xanax. To observe. Medicine to see.) Postoperative plan: see orders Time Spent With Patient Time: Total time spent is greater than 50% in coordination of care (as documented) at patient's floor/unit and/or counseling patient: Time with patient: less than 15 minutes SOLID DIE CUTTER- PN:Subj Post-Op Subjective Date/time seen: 01/28/23 08:26 Interval history: Intractable nausea, mildly elevated blood sugars, no fever no chills. Labs are normal. to administer Xanax. Possible supratentorial etiology Subjective: patient reports feeling better, patient has no complaints and pain is well controlled Exam Const: General: healthy appearing, comfortable and no acute distress Resp: Auscultation: clear to auscultation bilaterally, no rales, no rhonchi and no wheezes Cardio: Rate: regular rate Heart sounds: no click, no murmurs and no rubs GI: Inspection: non-distended Auscultation: normal bowel sounds Extrem: General: normal to inspection, no pedal edema and no calf tenderness SOLID DIE CUTTER - PN: Obj Data Vital Signs Vital Signs: Vital Signs - 24 hr 01/27/23 10:18 01/27/23 11:00 01/27/23 10:30 Temperature 97.1 F L Pulse Rate 73 73 72 Respiratory Rate 12 16 18 Blood Pressure 121/59 L 145/93 H 116/64 Pulse Oximetry 100 100 100 Oxygen Delivery Simple Face Mask Room Air Simple Face Mask Oxygen Flow Rate 6 6 01/27/23 10:45 01/27/23 11:15 01/27/23 11:30 Temperature Pulse Rate 72 83 84 Respiratory Rate 16 16 12 Blood Pressure 130/59 L 142/76 H 138/76 Pulse Oximetry 100 92 95 Oxygen Delivery Simple Face Mask Room Air Room Air Oxygen Flow Rate 6 01/27/23 11:45 01/27/23 12:00 01/27/23 12:30 Temperature Pulse Rate 88 81 80 Respiratory Rate 13 13 18 Blood Pressure 139/86 138/77 132/73 Pulse Oximetry 92 92 92 Oxygen Delivery Room Air Room Air Room Air Oxygen Flow Rate 01/27/23 13:00 01/27/23 17:15 01/27/23 17:19 Temperature 98 F 98.0 F Pulse Rate 70 72 Respiratory Rate 16 16 Blood Pressure 123/62 165/85 H Pulse Oximetry 97 100 85 L Oxygen Delivery Nasal Cannula Oxygen Flow Rate 2 01/27/23 17:19 01/27/23 17:20 01/27/23 17:20 Temperature Pulse Rate Respiratory Rate 14 14 Blood Pressure Pulse Oximetry 85 L 100 100 Oxygen Delivery Nasal Cannula Oxygen Flow Rate 2 01/27/23 20:45 01/27/23 20:45 01/27/23 23:35 Temperature 98.3 F 98.6 F Pulse Rate 52 L 76 Respiratory Rate 20 20 Blood Pressure 144/83 H 144/70 H Pulse Oximetry 100 100 97 Oxygen Delivery Nasal Cannula Oxygen Flow Rate 2 01/28/23 03:50 Temperature 98.2 F Pulse Rate 51 L Respiratory Rate 22 H Blood Pressure 147/62 H Pulse Oximetry 100 Oxygen Delivery Oxygen Flow Rate Intake/Output Intake/Output: Intake & Output 01/25/23 01/26/23 01/27/23 01/28/23 23:59 23:59 23:59 23:59 Intake Total 2250 Output Total 730 325 Balance 1520 -325 Meds/Results Medications: Active Medications Generic Name Dose Route Start Last Admin Trade Name Freq PRN Reason Stop Dose Admin Hydrocodone Bitart/Acetaminophen 1 tab 01/27/23 12:53 Hydrocodone/Acetaminophen (*Crx) 5-325 Mg Tablet PO Q3H PRN Pain Rated 5 or Less Hydrocodone Bitart/Acetaminophen 1 tab 01/27/23 12:53 Hydrocodone/Acetaminophen (*Crx) 10-325 Mg Tablet PO Q3H PRN Pain Rated 6 or Greater Chlorthalidone 25 mg 01/28/23 09:00 Chlorthalidone 25 Mg Tablet PO DAILY TIFFANY Dextrose 12.5 gm 01/27/23 20:09 Dextrose 50% 25 Gm/50 Ml Syringe IV PUSH PRN PRN Hypoglycemia Protocol Diphenhydramine HCl 25 mg 01/27/23 16:22 01/28/23 04:05 Diphenhydramine
[2023-01-28] MEDS: ALPRAZolam (*CRX) 0.5 MG TABLET 1 MG PO (09:00)
[2023-01-28] MEDS: LACTATED RINGERS 1,000 ML 100 ML IV CONT ×2 (09:07→19:00)
--- NOTE | 2023-01-28 10:20 | PM.IMCN ---
Assessment and Plan Assessment and plan (1) Insulin dependent type 2 diabetes mellitus: Code(s): E11.9 - Type 2 diabetes mellitus without complications; Z79.4 - [employer] (current) use of insulin Status: Acute Assessment and Plan: Accu-Cheks, sliding scale insulin, check A1c Blood glucose reviewed 01/28 (2) Hypertension: Code(s): I10 - Essential (primary) hypertension Status: Acute Assessment and Plan: Blood pressure reviewed 01/28 (3) Anemia: Code(s): D64.9 - Anemia, unspecified Status: Acute Assessment and Plan: Monitor hemoglobin, stable postoperatively (4) Dyslipidemia: Code(s): E78.5 - Hyperlipidemia, unspecified Status: Acute (5) Nausea & vomiting: Code(s): R11.2 - Nausea with vomiting, unspecified Status: Acute Assessment and Plan: Phenergan and Ativan as needed Supportive care (6) Pelvic pain: Code(s): R10.2 - Pelvic and perineal pain Status: Acute Assessment and Plan: Postop day 1 from total laparoscopic hysterectomy with right oophorectomy and adhesiolysis Plan DVT prophylaxis with SCDs GI prophylaxis not indicated Code status full code HPI Date of Consult Consult date: 01/28/23 Requesting Physician: Olu Skelton MD Primary Care Provider: Marcel Felipe MD Consult Narrative Narrative: 47-year-old female with history of hypertension, hyperlipidemia, diabetes is postop day 1 from a total laparoscopic hysterectomy and right oophorectomy with adhesiolysis. Hospital medicine is being consulted for medical management. Postoperatively patient was suffering from intractable nausea and vomiting. No overnight events noted. No chest pain or shortness of breath. No fevers or chills. Review of Systems Review of Systems: 12 point review of systems was assessed and was negative except as noted in the HPI PMFSH Past Medical History Medical History Anemia Anxiety Cellulitis of great toe, right Chest pain Chronic GERD Degenerative disc disease, lumbar Depression Dyslipidemia Hypertension Insulin dependent type 2 diabetes mellitus Psoriasis Vitamin D deficiency Surgical History Surgical History History of left salpingo-oophorectomy History of open reduction and internal fixation (ORIF) procedure Right arm fracture as a child. Family History Family History Other Cerebrovascular accident Diabetes mellitus Family history of alcoholism Family history of arthritis Hypertension Social History Social History Social History: Surrogate decision maker: William Dennis, sibling. Code status: Full code. Smoking packs per day: 1 Smoking cigarettes per day: 20.0 Years smoked: 32 Smoking pack-years: 32.00 Smoking status: Current every day smoker Tobacco type: cigarettes Second hand tobacco smoke exposure: No Alcohol intake: current Alcohol use details: 4/MONTH Substance use: never Substance use type: does not use Living arrangements: with family Additional living arrangements comments: CHILDREN Occupation/Education: occupation Spiritual care concerns: No Meds Home Medications and Allergies Home Medications Medication Instructions Recorded Confirmed Type aspirin 81 mg tablet,delayed 81 mg PO DAILY 02/06/19 01/21/23 History release (Adult Low Dose Aspirin) valacyclovir 500 mg tablet 500 mg PO DAILY 02/06/19 01/21/23 History (Valtrex) chlorthalidone 25 mg tablet 25 mg PO DAILY 10/19/19 01/21/23 History atorvastatin 40 mg tablet (Lipitor) 40 mg PO HS 05/15/21 01/21/23 History sertraline 100 mg tablet (Zoloft) 100 mg PO QAM 05/15/21 01/21/23 History diclofenac sodium 75 mg 75 mg PO BID 12/08/22 1
--- NOTE | 2023-01-28 10:38 | WPDANESPN ---
Anes - Prog Note Post-Op Date/Time: 01/28/23 10:38 Cardiovascular status: normal Respiratory status: normal Airway patency: baseline Mental status: baseline Post-Op hydration status: normal Vital Signs: Last Vital Signs Temp 37.0 C 01/28/23 07:50 Pulse 61 01/28/23 07:50 Resp 16 01/28/23 07:50 BP 147/59 H 01/28/23 07:50 Pulse Ox 100 01/28/23 07:50 O2 Del Method Nasal Cannula 01/27/23 20:45 O2 Flow Rate 2 01/27/23 20:45 Pain Score (VAS): 05/22 I/O: Intake & Output 01/27/23 01/28/23 01/28/23 23:59 07:59 15:59 Intake Total 2195 119 9878 Output Total 550 525 Balance 450 -125 1000 Laboratory Tests 01/27/23 21:05 01/27/23 21:02 01/27/23 01/27/23 01/27/23 15:21 16:13 21:02 WBC RBC Hgb Hct MCV MCH MCHC RDW Plt Count MPV Immature Gran % (Auto) Neut % (Auto) Lymph % (Auto) [place]field % (Auto) Eos % (Auto) Baso % (Auto) Lymph # (Auto) [place]field # (Auto) Eos # (Auto) Baso # (Auto) Abs Immat Gran (auto) Absolute Neuts (auto) Absolute Nucleated RBC Nucleated RBC % Sodium 138 Potassium 4.4 Chloride 103 Carbon Dioxide 26 Anion Gap 9 BUN 18 H Creatinine 0.70 Estim Creat Clear Calc 93 Estimated GFR > 60 Glucose 292 H POC Capillary Glucose 331 H 273 H Lactic Acid Calcium 9.0 Magnesium 1.8 Total Bilirubin 0.5 AST 35 ALT 27 Alkaline Phosphatase 71 Total Protein 8.0 Albumin 3.7 01/27/23 01/27/23 21:03 21:05 WBC 10.7 H RBC 3.89 L Hgb 11.9 L Hct 36.8 L MCV 94.6 MCH 30.6 MCHC 32.3 RDW 13.3 Plt Count 374 MPV 9.6 Immature Gran % (Auto) 0.4 Neut % (Auto) 89.3 H Lymph % (Auto) 6.7 L Whitfield % (Auto) 3.3 Eos % (Auto) 0.1 Baso % (Auto) 0.2 Lymph # (Auto) 0.71 L Whitfield # (Auto) 0.4 Eos # (Auto) 0.0 Baso # (Auto) 0.0 Abs Immat Gran (auto) 0.04 H Absolute Neuts (auto) 9.5 H Absolute Nucleated RBC 0.0 Nucleated RBC % 0.0 Sodium Potassium Chloride Carbon Dioxide Anion Gap BUN Creatinine Estim Creat Clear Calc Estimated GFR Glucose POC Capillary Glucose Lactic Acid 2.0 Calcium Magnesium Total Bilirubin AST ALT Alkaline Phosphatase Total Protein Albumin Post-procedural complaints: nausea and vomiting Patient Feedback: Patient satisfied with anesthetic care.
[2023-01-28] MEDS: KETOROLAC 30 MG/ML VIAL (*BKC) IV PUSH ×2 (11:55→19:00)
--- NOTE | 2023-01-28 12:45 | PC.NURSE ---
Spoke with patient's sister who is sitting with the pt and she asked on behalf of the pt that the pt not get anything else for nausea at this time because she is very sensitive to medications.
[2023-01-28] MEDS: LORazepam INJ (*CRX) 2 MG/ML VIAL 1 MG IV PUSH ×2 (15:12→20:45)
[2023-01-28 19:00] VITALS: BP 145/70; PULSE 63; RESP 18; TEMP 36.9; O2SAT 98
--- NOTE | ~2023-01-29 | CT_ITS ---
CT of the Abdomen and Pelvis: Indication: Postoperative nausea and vomiting Technique: 2.5 mm axial scans were obtained through the abdomen and pelvis following intravenous adm inistration of 100 cc of Omnipaque 350. Dose reduction technique was used on this scan by utilizing a utomated exposure control and iterative reconstruction technique. The dose-length product (DLP) was 1 211.27 mGy-cm. Findings: Scans through the lung bases are unremarkable. The liver, spleen, pancreas, gallbladder, adrenals and kidneys are within normal limits. There is mil d inflammatory change about the pancreatic head extending to the yuki hepatis. No evidence of aortic aneurysm. No lymphadenopathy. No bowel obstruction or bowel wall thickening. There is no evidence to suggest acute appendicitis. Images through the pelvis were performed. Patient is status post hysterectomy. Urinary bladder unrema rkable. No adnexal mass seen. There is minimal free fluid in the pelvis. There is minimal free air in the pelvis. Impression: Mild inflammatory change about the pancreatic head/yuki hepatis. Correlate for acute pancreatitis. Minimal free fluid in the pelvis and small amounts of free air in the abdomen/pelvis, consistent with sequelae recent surgery. Status post hysterectomy. Reviewed, dictated and finalized at location M. RETE SCULPTOR Impression: Mild inflammatory change about the pancreatic head/yuki hepatis. Correlate for acute pancreatitis. Minimal free fluid in the pelvis and small amounts of free air in the abdomen/p bibiana, consistent with sequelae recent surgery. Status post hysterectomy.
--- NOTE | ~2023-01-29 | XR_ITS ---
EXAMINATION: XR chest 1V portable DATE: 01/29/2023 21:51 INDICATION: Hypoxia post hysterectomy TECHNIQUE: frontal view of the chest was obtained. COMPARISON: Chest radiograph and CT dated 05/15/2021. FINDINGS: Mild increased perihilar interstitial pattern suggesting mild pulmonary edema. No pleural effusion or pneumothorax. Heart size is normal. Small amount of free intraperitoneal gas below the right hemidia phragm consistent with reported history of recent hysterectomy. IMPRESSION: 1. Mild increased perihilar interstitial pattern and favor mild pulmonary edema over pneumonia. 2. Small amount of free intraperitoneal gas below the right hemidiaphragm consistent with reported hi story of recent hysterectomy 2 days prior. Reviewed, dictated and finalized at location A. TER PROJECTIONIST IMPRESSION: 1. Mild increased perihilar interstitial pattern and favor mild pulmonary edema over pneumonia. 2. Small amount of free intraperitoneal gas below the right hemidiaphragm consi stent with reported history of recent hysterectomy 2 days prior.
[2023-01-29] MEDS: LACTATED RINGERS 1,000 ML 100 ML IV CONT ×2 (04:51→16:53)
[2023-01-29 08:35] VITALS: BP 137/61; PULSE 53; RESP 16; TEMP 37.4; O2SAT 98
--- NOTE | 2023-01-29 08:42 | PM.GYNPNOP ---
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 Assessment and plan (1) Nausea & vomiting: Code(s): R11.2 - Nausea with vomiting, unspecified Status: Acute Assessment and Plan: Intractable post op nausea and vomiting - CT abd/pelvic Postoperative Procedures: Procedures Operation Date: 01/27/23 07:30 Actual Procedure Side Surgeon p Total Laparoscopic Hysterectomy with Right Oophorectomy, 45 minutes Lysis of Adhesions Right Olu Skelton MD Postoperative day: 2 Postoperative status: doing well Postoperative plan: see orders Time Spent With Patient Time: Total time spent is greater than 50% in coordination of care (as documented) at patient's floor/unit and/or counseling patient: Time with patient: less than 15 minutes 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 Labs are normal. to administer Xanax. Possible supratentorial etiology Subjective: patient reports feeling better, patient has no complaints and pain is well controlled Exam Const: General: healthy appearing, comfortable and no acute distress Resp: Auscultation: clear to auscultation bilaterally, no rales, no rhonchi and no wheezes Cardio: Rate: regular rate Heart sounds: no click, no murmurs and no rubs GI: Inspection: non-distended Auscultation: normal bowel sounds Extrem: General: normal to inspection, no pedal edema and no calf tenderness LICENSED AIRCRAFT MAINTENANCE ENGINEER - PN: Obj Data Vital Signs Vital Signs: Vital Signs - 24 hr 01/28/23 19:00 01/28/23 19:00 Temperature 98.4 F Pulse Rate 63 Respiratory Rate 18 Blood Pressure 145/70 H Pulse Oximetry 98 Oxygen Delivery Room Air Intake/Output Intake/Output: Intake & Output 01/26/23 01/27/23 01/28/23 01/29/23 23:59 23:59 23:59 23:59 Intake Total 2250 3100 1000 Output Total 730 825 Balance 1520 2275 1000 Meds/Results Medications: Active Medications Generic Name Dose Route Start Last Admin Trade Name Freq PRN Reason Stop Dose Admin Hydrocodone Bitart/Acetaminophen 1 tab 01/27/23 12:53 Hydrocodone/Acetaminophen (*Crx) 5-325 Mg Tablet PO Q3H PRN Pain Rated 5 or Less Hydrocodone Bitart/Acetaminophen 1 tab 01/27/23 12:53 Hydrocodone/Acetaminophen (*Crx) 10-325 Mg Tablet PO Q3H PRN Pain Rated 6 or Greater Chlorthalidone 25 mg 01/28/23 09:00 01/28/23 14:58 Chlorthalidone 25 Mg Tablet PO Not Given DAILY TIFFANY Dextrose 12.5 gm 01/27/23 20:09 Dextrose 50% 25 Gm/50 Ml Syringe IV PUSH PRN PRN Hypoglycemia Protocol Diphenhydramine HCl 25 mg 01/27/23 16:22 01/28/23 04:05 Diphenhydramine Hcl Inj 50 Mg/Ml Vial IV PUSH 25 mg Q4H PRN Administration Nausea Estradiol 2 mg 01/28/23 09:00 01/28/23 14:58 Estradiol 1 Mg Tablet PO 02/27/23 08:59 Not Given DAILY TIFFANY Glucagon 1 mg 01/27/23 20:09 Glucagon For Inj 1 Mg Vial IM PRN PRN Hypoglycemia Protocol Glucose 15 gm 01/27/23 20:09 Glucose Oral Gel 15 Gm Of Glucse In 37.5 Gm Tube PO PRN PRN Hypoglycemia Protocol Hydromorphone HCl 1 mg 01/27/23 16:45 Hydromorphone Hcl Inj (*Crx) 1 Mg/Ml Syr IV PUSH Q4HR PRN Pain Rated 7-10 Lactated Ringer's 1,000 mls @ 100 mls/hr 01/27/23 13:40 01/29/23 04:51 Lr - Lactated Ringers Iv IV CONT 100 mls/hr .Q10H TIFFANY Administration Dextrose 1,000 mls @ 100 mls/hr 01/27/23 20:09 Dextrose 5% 1,000 Ml IVPB PRN PRN Hypoglycemia Protocol Ibuprofen 600 mg 01/27/23 12:53 Ibuprofen 600 Mg Tablet PO Q6H PRN Cramping Ketorolac Tromethamine 30 mg 01/27/23 12:53 01/28/23 19:00 Ketorolac 30 Mg/Ml Vial (*Bkc) IV PUSH 02/01/23 12:52 30 mg Q6H PRN Administration Pain Rated 4-6 Lorazepam 1 mg 01/28/23 10:26 01/28/23 20:45 Lorazepam Inj (*Crx) 2 Mg/Ml Vial IV PUSH 1 mg Q6H PRN Administration Nausea And Vomiting Ondansetro
[2023-01-29] MEDS: ONDANSETRON INJ 4 MG/2 ML VIAL IV PUSH (08:43)
[2023-01-29] MEDS: LORazepam INJ (*CRX) 2 MG/ML VIAL 1 MG IV PUSH (09:43)
[2023-01-29] MEDS: KETOROLAC 30 MG/ML VIAL (*BKC) IV PUSH (09:54)
[2023-01-29 10:16] LABS: Basophils Percent Auto 0.4 % (0.2-1.2); Eosinophils Percent Auto 0.1 % (0-4.4); Hematocrit 34.2 % (37.0-47.0); Immature Granulocyte Absolute 0.08 K/mm3 (0.00-0.031); Immature Granulocyte Percent A 0.8 % (0-0.5); Lymphocytes Absolute Auto 1.25 K/mm3 (0.9-3.2); Lymphocytes Percent Auto 13.2 % (18.3-44.2); Mean Corpuscular HGB Conc 32.2 g/dl (32-36); Mean Corpuscular Hemoglobin 30.6 pg (26-34); Mean Corpuscular Volume 95.3 fl (80-100); Mean Platelet Volume 10.2 fl (7.4-10.4); Monocytes Absolute Auto 0.9 K/mm3 (0.1-0.6); Monocytes Percent Auto 9.3 % (2.6-8.5); Neutrophils Absolute Auto 7.2 K/mm3 (1.3-6.7); Neutrophils Percent Auto 76.2 % (45.5-73.1); Platelet Count Result 349 k/mm3 (150-375); Red Blood Count 3.59 M/mm3 (4.2-5.4); Red Cell Distribution Width 13.4 % (11.5-14.5); White Blood Count 9.5 K/mm3 (4.5-10.0)
[2023-01-29 10:29] LABS: Alanine Aminotransferase 35 U/L (6-35); Albumin Level 3.7 g/dL (3.5-5.1); Alkaline Phosphatase 68 U/L (38-126); Anion Gap 11 mmol/L (8-16); Aspartate Amino Transferase 40 U/L (14-36); Bilirubin,Total 0.6 mg/dL (0.2-1.3); Blood Urea Nitrogen 28 mg/dL (7-17); Calcium 8.8 mg/dL (8.4-10.2); Carbon Dioxide 26 mmol/L (22-30); Chloride 102 mmol/L (98-107); Estimated CRCL calculation 107 ml/min; Estimated Glomerular Filt Rate > 60; Glucose 268 mg/dL (65-110); Potassium 3.1 mmol/L (3.4-5.0); Sodium 139 mmol/L (137-145)
[2023-01-29] MEDS: diphenhydrAMINE HCl INJ 50 MG/ML VIAL 25 MG IV PUSH (10:55)
[2023-01-29 11:55] LABS: Lipase 141 U/L (23-300)
--- NOTE | 2023-01-29 12:13 | PM.IMPN ---
Progress Note: A&P Assessment and Plan (1) Nausea & vomiting: Code(s): R11.2 - Nausea with vomiting, unspecified Status: Acute Assessment and Plan: Supportive care, etiology likely secondary to anesthesia reaction compounded with anxiety/psychosomatic component CT scan showed possible inflammation of the pancreas, however, lipase was 141, LFTs unchanged No concern for pancreatitis Will schedule meds to prevent cyclical symptoms: ativan 0.5 mg po q6h benadryl 25 mg po q6h reglan 10 mg po q6h tylenol 1000 mg q8h ibuprofen 600 mg q6h oxycodone 2.5 mg q6h anticipate d/c tomorrow on reglan, tylenol, ibuprofen and oxy as needed, benadryl as needed, (stop ativan at discharge) (2) Hypokalemia: Code(s): E87.6 - Hypokalemia Status: Acute Assessment and Plan: Replete and recheck, likely secondary to vomiting and poor p.o. intake (3) Pelvic pain: Code(s): R10.2 - Pelvic and perineal pain Status: Acute Assessment and Plan: Postop day 2 from total laparoscopic hysterectomy with right oophorectomy and extensive adhesiolysis (4) Insulin dependent type 2 diabetes mellitus: Code(s): E11.9 - Type 2 diabetes mellitus without complications; Z79.4 - snf (current) use of insulin Status: Acute Assessment and Plan: Accu-Cheks, sliding scale insulin, check A1c Blood glucose reviewed 01/29, somewhat elevated, but patient is managing this with her insulin pump (5) Hypertension: Code(s): I10 - Essential (primary) hypertension Status: Acute Assessment and Plan: Blood pressure reviewed 01/29 Hold chlorthalidone due to hypokalemia (6) Anemia: Code(s): D64.9 - Anemia, unspecified Status: Acute Assessment and Plan: Monitor hemoglobin, stable postoperatively (7) Dyslipidemia: Code(s): E78.5 - Hyperlipidemia, unspecified Status: Acute Plan Stable for discharge from the hospitalist standpoint, increase p.o. fluids, replete potassium, would recheck BMP in 1 week after discharge, hold chlorthalidone while vomiting DVT prophylaxis with SCDs GI prophylaxis not indicated Code status full code Subjective Date/time seen: 01/29/23 12:13 Interval history: 47-year-old female with history of hypertension, hyperlipidemia, diabetes is postop day 1 from a total laparoscopic hysterectomy and right oophorectomy with adhesiolysis.? Hospital medicine is being consulted for medical management.? Postoperatively patient was suffering from intractable nausea and vomiting. CT abdomen and pelvis ordered by primary team showing possible pancreatic inflammation, lipase 141. No overnight events noted. No chest pain or shortness of breath. No diarrhea. No fevers or chills. Still with intractable nausea and vomiting, mainly dry heaving per nursing staff. Review of Systems Review of Systems: 12 point review of systems was assessed and was negative except as noted in the HPI Exam Narrative: General: No acute distress, alert and oriented per baseline HEENT: Atraumatic, normocephalic, mucous membranes moist CV: Regular rate and rhythm, S1, S2 Lungs: Clear to auscultation bilaterally, no rales or crackles noted, no wheezes, good air entry Abdomen: Soft, nontender, nondistended Extremities: Normal to inspection Skin: No rashes noted, no lesions or wounds seen Psych: Euthymic, normal affect Objective Data Vital Signs Vital Signs: Vital Signs - 24 hr 01/28/23 19:00 01/28/23 19:00 01/29/23 08:35 Temperature 98.4 F 99.3 F Pulse Rate 63 53 L Respiratory Rate 18 16 Blood Pressure 145/70 H 137/61 Pulse Oximetry 98 98 Oxygen Delivery Room Air Intake/Output Intake/Output: Intake & Output 01/26/23 01/27/23 01/28/23 01/29/23 23:59 23:59 23:59 23:59 Intake Total 2250 3100 1000 Output Total 730 825 Balance 1520 2275 1000 Meds/Results Medications: Active Medi
[2023-01-29] MEDS: LACTATED RINGERS 1,000 ML 999 ML IV CONT (13:13)
[2023-01-29] MEDS: POTASSIUM CHLORIDE 20 MEQ ER TABLET 40 MEQ PO (13:15)
[2023-01-29] MEDS: METOCLOPRAMIDE HCL 10 MG TABLET PO (14:38)
[2023-01-29 15:30] VITALS: BP 153/52; PULSE 60; RESP 16; TEMP 37.6; O2SAT 95
[2023-01-29] MEDS: ACETAMINOPHEN 500 MG TABLET 1000 MG PO (15:41)
[2023-01-29] MEDS: LORazepam (*CRX) 0.5 MG TABLET PO (15:42)
[2023-01-29 16:40] LABS: Anion Gap 8 mmol/L (8-16); Blood Urea Nitrogen 30 mg/dL (7-17); Calcium 8.8 mg/dL (8.4-10.2); Carbon Dioxide 26 mmol/L (22-30); Chloride 103 mmol/L (98-107); Estimated CRCL calculation 125 ml/min; Estimated Glomerular Filt Rate > 60; Glucose 294 mg/dL (65-110); Potassium 3.8 mmol/L (3.4-5.0); Sodium 137 mmol/L (137-145)
[2023-01-29] MEDS: diphenhydrAMINE HCl CAP 25 MG CAPSULE PO (16:53)
[2023-01-29] MEDS: IBUPROFEN 600 MG TABLET PO ×2 (16:54→22:48)
[2023-01-29 21:00] VITALS: BP 168/72; PULSE 43; RESP 18; TEMP 37.3; O2SAT 95
[2023-01-29] MEDS: CALCIUM CARBONATE (TUMS) 500 MG (200 MG ELEMENTAL) 400 MG (21:00)
--- NOTE | 2023-01-29 21:17 | PC.NURSE ---
2109:Upon assessment patient patient O2 sat was 83-88% on RA with a heart rate of 43-48. Her blood sugar was 267, without correction. Patient placed on 1L NC and sating 95%. 2116: Call to Hospitalist, verbal orders received to obtain chest x-ray. 2124: Verbal orders received to discuss with patient, correcting blood sugars via her personal pump or allowing this RN to check and administer insulin. 2129: Discussed with patient about correcting her blood sugars, patient decided to correct her blood sugar with her insulin pump. 2199: Blood sugar 254 per patient pump
--- NOTE | 2023-01-29 21:30 | PC.NURSE ---
Patient blood sugar 267. Patient gave herself 3 unit NovoLog bolus at this time. Will recheck at 2200.
--- NOTE | 2023-01-29 21:42 | ECG_ITS ---
Measurements Intervals [place] Rate: 45 P: 10 SC: 151 QRS: 26 QRSD: 91 T: 21 QT: 478 QTc: 414 Interpretive Statements SINUS BRADYCARDIA T WAVE ABNORMALITY IN ANTERIOR LEADS- CONSIDER ISCHEMIA ABNORMAL ECG COMPARED TO ECG 01/22/2023 15:54:28 SINUS BRADYCARDIA NOW PRESENT T WAVE ABNORMALITY IS MORE PRONOUNCED Electronically Signed On 01-30-2023 7:38:10 INSPECTOR OUTSIDE [employer]RIBUTION by Nimesh House D.O.
--- NOTE | 2023-01-29 22:35 | PC.NURSE ---
2235:Verbal orders received to discontinue IV fluids at this time and recheck patient blood sugar in 3 hours. Provider aware of blood sugar of 254 at 2200.
[2023-01-29] MEDS: ONDANSETRON INJ 4 MG/2 ML VIAL 8 MG IV PUSH (22:48)
--- NOTE | 2023-01-29 23:11 | PC.NURSE ---
Report given to 3 medical RN at this time.
[2023-01-29 23:30] VITALS: BP 151/74; PULSE 44; RESP 18; TEMP 37.1; O2SAT 96
--- NOTE | 2023-01-29 23:35 | PC.NURSE ---
Patient transported to med surg rm 347 at 2335 on 2L NC. VSS. No signs of distress.
[2023-01-29 23:52] VITALS: BP 183/62; PULSE 60; RESP 18; TEMP 37.4; O2SAT 98
[2023-01-30] VITALS (8 sets, daily range): BP systolic 127–169; BP diastolic 60–80; PULSE 51–63; RESP 16–20; TEMP 36.7–36.8; O2SAT 92–99
[2023-01-30] MEDS: LORazepam INJ (*CRX) 2 MG/ML VIAL 0.5 MG IV PUSH (01:02)
[2023-01-30] MEDS: diphenhydrAMINE HCl INJ 50 MG/ML VIAL 25 MG IV PUSH ×2 (01:02→06:52)
[2023-01-30] MEDS: METOCLOPRAMIDE HCL INJ 10 MG/2 ML VIAL 5 MG IV PUSH ×2 (01:03→06:52)
--- NOTE | 2023-01-30 01:06 | PM.EVENT ---
Event Note Event Note Event Note: Nursing staff called as the patient dropped her oxygen saturations 88% and dropped her heart rate to 45. Patient has had persistent nausea and dry heaves. I changed the patient's diet to clear liquid diet and advance as tolerated to consistent carbohydrate. Nursing staff called multiple times concerned about the patient's heart rate although the patient's heart rate did not drop any further than what it was. They were also concerned about the patient's blood pressure of 153/52. Nursing staff notified me the patient fluids were running at 125 mL an hour. My reviewed orders patient's fluids are actually running at 100 mL an hour. Patient was positive 7 L for the hospital stay. However he output was not updated for the last 24 hours. Nursing staff reported the patient had been having severe chest pain. The patient actually denied having chest pain and reported that she was is having terrible heartburn from her nausea and dry heaves. Due to nurses reports chest x-ray was and EKG was performed. Patient's x-ray personally reviewed and interpreted demonstrated mild increased perihilar interstitial opacities concerning for pulmonary edema. The patient's IV fluids were discontinued. EKG personally interpreted as sinus bradycardia with T-wave inversions V 1-3 and 4. The patient's glucoses have been elevated in the 260 80s to 280s ever since surgery. Patient has not been giving herself any corrective insulin and is only been allowing her insulin pump to give her her basal rate. The poorly controlled diabetes is likely not helping patient's symptoms. Patient's only A1c within the system was from December 2021. Sinus bradycardia--it most likely due to vasovagal reaction. Will continue to monitor heart rate on telemetry Hypoxia--possibly transient versus continuous acute hypoxic respiratory failure. Will wean oxygen as tolerated. Chest x-ray demonstrated possible pulmonary edema. Patient may benefit from outpatient versus inpatient echocardiogram to evaluate cardiac structure and function if no recent echo performed. Uncontrolled diabetes mellitus--I have asked nursing staff to check the patient's at fingerstick glucoses and confirm accuracy of patient's glucometer. If the patient does have hyperglycemic events patient either needs to give herself boluses for her hyperglycemia with her pump or she needs to allow was to give her subcutaneous insulin which is now been ordered as per the moderate sliding scale insulin with Accu-Cheks a.c. HS and hypoglycemia protocol. The patient does have intractable nausea and vomiting but is now vomiting at the time of my evaluation. She is still reporting intractable nausea. Schedule Reglan, Ativan and Benadryl had been ordered previously. If the patient is still having symptoms despite switching these medications to IV in and may consider giving the patient IM dose of Phenergan verses a dose of Haldol. 45 minute spent in critical care activities. Due to a high probability of clinically significant, life threatening deterioration, the patient required my highest level of preparedness to intervene emergently and I personally spent this critical care time directly and personally managing the patient. This critical care time included obtaining a history; examining the patient; pulse oximetry; ordering and review of studies; arranging urgent treatment with development of a management plan; evaluation of patient's response to treatment; frequent reassessment; and discussions with other providers. It was exclusive of separately billable procedures and treating other patients and teaching time. Please see Assessment and Plan section and the rest of the note for further information on patient assessment and treatment.
--- NOTE | 2023-01-30 01:18 | PC.NURSE ---
2330: PATIENT TRANSFERRED INTO ROOM 347 FROM OB VIA BED. FAMILY BEDSIDE.
[2023-01-30] MEDS: FAMOTIDINE 20 MG/2 ML VIAL IV PUSH (02:21)
[2023-01-30] MEDS: LORazepam INJ (*CRX) 2 MG/ML VIAL 1 MG IV PUSH (05:10)
[2023-01-30 05:18] LABS: Glucose Point of Care 213 mg/dl (65-105)
[2023-01-30 06:20] LABS: Basophils Percent Auto 0.2 % (0.2-1.2); Eosinophils Percent Auto 0.3 % (0-4.4); Hematocrit 32.3 % (37.0-47.0); Hemoglobin 10.6 g/dL (12.0-15.0); Immature Granulocyte Absolute 0.05 K/mm3 (0.00-0.031); Immature Granulocyte Percent A 0.5 % (0-0.5); Lymphocytes Absolute Auto 1.53 K/mm3 (0.9-3.2); Mean Corpuscular HGB Conc 32.8 g/dl (32-36); Mean Corpuscular Hemoglobin 30.6 pg (26-34); Mean Corpuscular Volume 93.4 fl (80-100); Mean Platelet Volume 10.2 fl (7.4-10.4); Monocytes Absolute Auto 1.1 K/mm3 (0.1-0.6); Monocytes Percent Auto 10.3 % (2.6-8.5); Neutrophils Absolute Auto 7.5 K/mm3 (1.3-6.7); Neutrophils Percent Auto 73.7 % (45.5-73.1); Platelet Count Result 319 k/mm3 (150-375); Red Blood Count 3.46 M/mm3 (4.2-5.4); White Blood Count 10.2 K/mm3 (4.5-10.0)
[2023-01-30 06:33] LABS: Alanine Aminotransferase 51 U/L (6-35); Albumin Level 3.2 g/dL (3.5-5.1); Alkaline Phosphatase 68 U/L (38-126); Anion Gap 5 mmol/L (8-16); Aspartate Amino Transferase 45 U/L (14-36); Bilirubin,Total 0.5 mg/dL (0.2-1.3); Blood Urea Nitrogen 20 mg/dL (7-17); Calcium 8.7 mg/dL (8.4-10.2); Carbon Dioxide 30 mmol/L (22-30); Chloride 100 mmol/L (98-107); Estimated CRCL calculation 125 ml/min; Estimated Glomerular Filt Rate > 60; Glucose 218 mg/dL (65-110); Potassium 3.4 mmol/L (3.4-5.0); Sodium 135 mmol/L (137-145)
[2023-01-30] MEDS: hydrALAZINE HCL 20 MG/ML VIAL 10 MG IV PUSH (06:51)
[2023-01-30 07:38] LABS: Hemoglobin A1C 9.2 % (<5.7)
[2023-01-30 08:10] LABS: Glucose Point of Care 215 mg/dl (65-105)
[2023-01-30] MEDS: SERTRALINE HCL 50 MG TABLET 100 MG PO (09:13)
[2023-01-30] MEDS: IBUPROFEN 600 MG TABLET PO ×3 (09:13→20:32)
[2023-01-30] MEDS: PANTOPRAZOLE SODIUM IV 40 MG VIAL IV PUSH ×2 (09:13→20:32)
[2023-01-30] MEDS: CHLORTHALIDONE 25 MG TABLET PO (09:13)
[2023-01-30] MEDS: INSULIN ASPART (*BKC) 100 UNITS/ML SUB-Q ×2 (09:18→17:41)
[2023-01-30] MEDS: PREGABALIN (*CRX) 75 MG CAPSULE PO (10:16)
[2023-01-30] MEDS: estradioL 1 MG TABLET 2 MG PO (11:09)
--- NOTE | 2023-01-30 11:23 | PM.GYNPNOP ---
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 From a total laparoscopic hysterectomy and bilateral salpingo oophorectomy. continues to struggle with postop nausea. There was a CT scan that appeared normal essentially. With some suggestion pancreatitis, normal pancreatic enzymes. Some bradycardia that resolved. Some mild pulmonary edema that is likely due to some fluid overload. Fluid restricting at this time. Got up today and walk to the bathroom while I was there. Looked better. Did not look particularly good still yet but there are some signs of improvement with some interaction. Medicine is aware of her problems. She is on telemetry now. Continue observation. No evidence of bowel obstruction or ileus on CT scan. 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 Was able the hold some conversation today, made some eye contact. Does not report pain. Continued nausea. Denies any chest pain or shortness of breath. Denies any fevers or chills. Review of Systems Review of Systems: All systems reviewed & are unremarkable except as noted in HPI and below Constitutional: Constitutional: Denies chills, Denies fatigue, Denies fever(s) and Denies weakness Eyes: Eyes: Denies blurry vision, Denies change in vision, Denies loss of peripheral vision, Denies loss of vision, Denies other visual disturbances and Denies eye pain ENT: Denies vertigo, Denies dizziness, Denies hearing loss, Denies mouth pain, Denies nasal obstruction, Denies neck mass and Denies neck pain Cardiovascular: Cardiovascular: Denies chest pain, Denies diaphoresis, Denies syncope, Denies leg edema and Denies dyspnea Respiratory: Respiratory: Denies chest congestion, Denies cough, Denies hemoptysis, Denies dyspnea and Denies wheezing Gastrointestinal: Gastrointestinal: Denies abdominal pain, Denies constipation, Denies diarrhea, Denies nausea and Denies vomiting Genitourinary: Genitourinary: Denies hematuria, Denies change in libido, Denies nocturia, Denies genital lesions, Denies flank pain and Denies urinary urgency Musculoskeletal: Musculoskeletal: Denies abnormal gait, Denies back pain, Denies myalgias, Denies arthralgias, Denies joint swelling, Denies muscle weakness and Denies neck pain Integumentary/Breasts: Skin/Breast: Denies swelling, Denies breast pain, Denies breast mass, Denies dry skin, Denies nipple discharge, Denies unusual bruising and Denies jaundice Neurologic: Denies Neuro-related abnormal movements, Denies Abnormal speech present, Denies abnormal gait, Denies behavioral changes, Denies confusion, Denies vertigo, Denies dizziness, Denies syncope, Denies loss of vision, Denies memory loss, Denies convulsions and Denies weakness Psychiatric: Psychiatric: Denies abnormal sleep pattern, Denies behavioral changes, Denies change in libido, Denies confusion, Denies depression, Denies anhedonia and Denies memory loss Endocrine: Endocrine: Reports
--- NOTE | 2023-01-30 11:33 | PM.IMPN ---
Progress Note: A&P Assessment and Plan (1) Nausea & vomiting: Code(s): R11.2 - Nausea with vomiting, unspecified Status: Acute Assessment and Plan: Supportive care, etiology likely secondary to anesthesia reaction compounded with anxiety/psychosomatic component CT scan showed possible inflammation of the pancreas, however, lipase was 141, LFTs unchanged No concern for pancreatitis Will schedule meds to prevent cyclical symptoms: ativan 0.5 mg po q6h benadryl 25 mg po q6h reglan 10 mg po q6h tylenol 1000 mg q8h ibuprofen 600 mg q6h oxycodone 2.5 mg q6h anticipate d/c on reglan, tylenol, ibuprofen and oxy as needed, benadryl as needed 01/30: Much improved, would discharge on scheduled Tylenol, ibuprofen, Benadryl and oxycodone as needed (2) Hypokalemia: Code(s): E87.6 - Hypokalemia Status: Acute Assessment and Plan: Replete and recheck, likely secondary to vomiting and poor p.o. 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 up operator (current) use of insulin Status: Acute Assessment and Plan: Accu-Cheks, sliding scale insulin, check A1c Blood glucose reviewed 01/30, somewhat elevated, but patient is managing this with her insulin pump (5) Hypertension: Code(s): I10 - Essential (primary) hypertension Status: Acute Assessment and Plan: Blood pressure reviewed 01/30 Hyperkalemia resolved, restart chlorthalidone (6) Anemia: Code(s): D64.9 - Anemia, unspecified Status: Acute Assessment and Plan: Monitor hemoglobin, stable postoperatively (7) Dyslipidemia: Code(s): E78.5 - Hyperlipidemia, unspecified Status: Acute Plan Stable for discharge from the hospitalist standpoint, increase p.o. fluids, replete potassium, would recheck BMP in 1 week after discharge, hold chlorthalidone while vomiting DVT prophylaxis with SCDs GI prophylaxis not indicated Code status full code Subjective Date/time seen: 01/30/23 11:33 Interval history: 47-year-old female with history of hypertension, hyperlipidemia, diabetes is postop day 1 from a total laparoscopic hysterectomy and right oophorectomy with adhesiolysis.? Hospital medicine is being consulted for medical management.? Postoperatively patient was suffering from intractable nausea and vomiting. CT abdomen and pelvis ordered by primary team showing possible pancreatic inflammation, lipase 141. No overnight events noted. No chest pain or shortness of breath. No diarrhea. No fevers or chills. Much improved, less nausea, no vomiting. Review of Systems Review of Systems: 12 point review of systems was assessed and was negative except as noted in the HPI Exam Narrative: General: No acute distress, alert and oriented per baseline HEENT: Atraumatic, normocephalic, mucous membranes moist CV: Regular rate and rhythm, S1, S2 Lungs: Clear to auscultation bilaterally, no rales or crackles noted, no wheezes, good air entry Abdomen: Soft, nontender, nondistended Extremities: Normal to inspection Skin: No rashes noted, no lesions or wounds seen Psych: Euthymic, normal affect Objective Data Vital Signs Vital Signs: Vital Signs - 24 hr 01/29/23 15:30 01/29/23 21:00 01/29/23 21:00 Temperature 99.6 F 99.1 F Pulse Rate 60 43 L 43 L Respiratory Rate 16 18 18 Blood Pressure 153/52 H 168/72 H Pulse Oximetry 95 95 95 Oxygen Delivery Nasal Cannula Oxygen Flow Rate 1 01/29/23 23:30 01/29/23 23:52 01/30/23 06:11 Temperature 98.8 F 99.3 F 98.2 F Pulse Rate 44 L 60 51 L Respiratory Rate 18 18 16 Blood Pressure 151/74 H 183
[2023-01-30 11:50] LABS: Glucose Point of Care 177 mg/dl (65-105)
[2023-01-30] MEDS: CALCIUM CARBONATE (TUMS) 500 MG (200 MG ELEMENTAL) PO (16:01)
[2023-01-30 17:22] LABS: Glucose Point of Care 266 mg/dl (65-105)
[2023-01-30 21:48] LABS: Glucose Point of Care 353 mg/dl (65-105)
[2023-01-31] VITALS: PULSE 53
[2023-01-31] MEDS: ONDANSETRON INJ 4 MG/2 ML VIAL IV PUSH (03:45)
[2023-01-31 04:00] VITALS: PULSE 50
[2023-01-31 06:00] VITALS: BP 114/52; PULSE 84; RESP 18; TEMP 36.9; O2SAT 95
[2023-01-31 06:09] LABS: Basophils Percent Auto 0.4 % (0.2-1.2); Eosinophils Absolute Auto 0.2 K/mm3 (0-0.3); Eosinophils Percent Auto 2.7 % (0-4.4); Hematocrit 30.4 % (37.0-47.0); Hemoglobin 9.9 g/dL (12.0-15.0); Immature Granulocyte Absolute 0.02 K/mm3 (0.00-0.031); Immature Granulocyte Percent A 0.2 % (0-0.5); Lymphocytes Absolute Auto 2.08 K/mm3 (0.9-3.2); Lymphocytes Percent Auto 25.7 % (18.3-44.2); Mean Corpuscular HGB Conc 32.6 g/dl (32-36); Mean Corpuscular Hemoglobin 30.7 pg (26-34); Mean Corpuscular Volume 94.4 fl (80-100); Mean Platelet Volume 9.9 fl (7.4-10.4); Monocytes Absolute Auto 0.9 K/mm3 (0.1-0.6); Monocytes Percent Auto 10.5 % (2.6-8.5); Neutrophils Absolute Auto 4.9 K/mm3 (1.3-6.7); Neutrophils Percent Auto 60.5 % (45.5-73.1); Platelet Count Result 270 k/mm3 (150-375); Red Blood Count 3.22 M/mm3 (4.2-5.4); Red Cell Distribution Width 12.6 % (11.5-14.5); White Blood Count 8.1 K/mm3 (4.5-10.0)
[2023-01-31 06:27] LABS: Alanine Aminotransferase 55 U/L (6-35); Albumin Level 2.9 g/dL (3.5-5.1); Alkaline Phosphatase 57 U/L (38-126); Anion Gap 5 mmol/L (8-16); Aspartate Amino Transferase 36 U/L (14-36); Bilirubin,Total 0.6 mg/dL (0.2-1.3); Blood Urea Nitrogen 17 mg/dL (7-17); Calcium 8.4 mg/dL (8.4-10.2); Carbon Dioxide 28 mmol/L (22-30); Chloride 102 mmol/L (98-107); Estimated CRCL calculation 107 ml/min; Estimated Glomerular Filt Rate > 60; Glucose 199 mg/dL (65-110); Potassium 3.5 mmol/L (3.4-5.0); Sodium 135 mmol/L (137-145)
[2023-01-31 07:53] LABS: Glucose Point of Care 177 mg/dl (65-105)
[2023-01-31 08:00] VITALS: PULSE 55
[2023-01-31] MEDS: estradioL 1 MG TABLET 2 MG PO (08:31)
[2023-01-31] MEDS: CHLORTHALIDONE 25 MG TABLET PO (08:31)
[2023-01-31] MEDS: PREGABALIN (*CRX) 75 MG CAPSULE PO (08:32)
[2023-01-31] MEDS: SERTRALINE HCL 50 MG TABLET 100 MG PO (08:32)
[2023-01-31] MEDS: PANTOPRAZOLE 40 MG TABLET PO (08:51)
--- NOTE | 2023-01-31 08:55 | PM.GYNPNOP ---
REGULATORY AND COMPLIANCE TECHNICIAN - A/P Assessment and plan (1) Nausea & vomiting: Code(s): R11.2 - Nausea with vomiting, unspecified Status: Acute (2) Encounter for postoperative care: Code(s): Z48.89 - Encounter for other specified surgical aftercare Status: Acute (3) Insulin dependent type 2 diabetes mellitus: Code(s): E11.9 - Type 2 diabetes mellitus without complications; Z79.4 - [facility] (current) use of insulin Status: Acute (4) Hypertension: Code(s): I10 - Essential (primary) hypertension Status: Acute (5) Dyslipidemia: Code(s): E78.5 - Hyperlipidemia, unspecified Status: Acute Plan 47-year-old female, postop day number 4. Postoperative nausea and vomiting-severe, intractable. Improved today significantly. Patient ready to be discharged. Some dizziness. Is going to have Close, hands-on care /support with her family. given routine postoperative precautions. Medications prescribed Postoperative Procedures: Procedures Operation Date: 01/27/23 07:30 Actual Procedure Side Surgeon p Total Laparoscopic Hysterectomy with Right Oophorectomy, 45 minutes Lysis of Adhesions Right Olu Skelton MD Time Spent With Patient Time: Total time spent is greater than 50% in coordination of care (as documented) at patient's floor/unit and/or counseling patient: Time with patient: 15 - 25 minutes REGULATORY AND COMPLIANCE TECHNICIAN- PN:Reina Post-Op Subjective Date/time seen: 01/31/23 08:55 Dramatic improvement of nausea today, tolerating p.o., asked for breakfast, denies any chest pain shortness of breath. Denies any fevers or chills. Persistent mild nausea. Denies any vaginal bleeding. Much improved abdominal discomfort/ pain. Interval history: 47-year-old female with history of hypertension, hyperlipidemia, diabetes is postop day 1 from a total laparoscopic hysterectomy and right oophorectomy with adhesiolysis.? Hospital medicine is being consulted for medical management.? Postoperatively patient was suffering from intractable nausea and vomiting. CT abdomen and pelvis ordered by primary team showing possible pancreatic inflammation, lipase 141. No overnight events noted. No chest pain or shortness of breath. No diarrhea. No fevers or chills. Much improved, less nausea, no vomiting. Exam Const: General: cooperative, healthy appearing, comfortable and no acute distress Orientation/consciousness: oriented to person, oriented to place and oriented to time HENMT: Head: normal to inspection Ears: external ears normal Face/Nose/Sinus: Normal external nose present and normal facial exam Face and sinus: normal facial exam Eyes: General: appearance normal, both eyes and all related structures Neck: Neck: normal visual inspection, trachea midline and supple Resp: Auscultation: clear to auscultation bilaterally, no crackles, no rales, no rhonchi and no wheezes Cardio: Rate: regular rate Rhythm: regular rhythm Heart sounds: no click, no murmurs and no rubs GI: GI Palp: No abdominal tenderness, No Soft to palpation, No Tenderness to palpation present (GI) and No Palpable mass present Auscultation: normal bowel sounds Skin: General skin exam: normal color and no rashes or lesions noted Neuro: General: oriented to person, oriented to place and oriented to time Extrem: General: normal to inspection, no joint enlargement, no clubbing, cyanosis or edema, no pedal edema and no calf tenderness Psych: Appearance: grossly normal Mental Status: mental status grossly normal Speech and movement: Normal speech and movement present REGULATORY AND COMPLIANCE TECHNICIAN - PN: Obj Data Vital Signs Vital Signs: Vital Signs - 24 hr 01/30/23 09:34 01/30/23 12:00 01/30/23 16:00 Temperature Pulse Rate 58 L 55 L Respiratory Rate Blood Pressure Pulse Oximetry 92 Oxygen Delivery Nasal Cannula Oxygen Flow Rate 2 01/30/23 14:00 01/30/23 20:00 01/30/23 20:00 Temperature 98.2 F Pulse Rate 51 L 55 L 54 L Respiratory Rate 16 16
--- NOTE | 2023-01-31 08:59 | PM.DS ---
DS: Admitting Diagnosis Discharge Date January 31, 2023 Admitting Diagnosis pelvic pain DS: Discharge Diagnosis Discharge Diagnosis (1) Pelvic pain: Code(s): R10.2 - Pelvic and perineal pain Status: Acute (2) Encounter for postoperative care: Code(s): Z48.89 - Encounter for other specified surgical aftercare Status: Acute (3) Nausea & vomiting: Code(s): R11.2 - Nausea with vomiting, unspecified Status: Acute DS: Summary Hospital Course Hospital Course: 39-year-old female who was admitted for surgical care. She underwent hysterectomy With oophorectomy. Since that time she has had profound nausea. She had profound nausea for more than 3 days. Continues to be nauseated at discharge, however, she is much improved and eager to go home. She is tolerating p.o. at this time. She was ambulating, passing flatus with stable vitals throughout her post operative course. She will be discharged home today. given Precautions and medications were prescribed. Time Spent with Patient Time attestation: Total time spent providing and/or coordinating discharge services: DS: Data Data Completed and Pending Completed studies during hospitalization: Pending at discharge 01/27/23 09:54 Surgical [PTH] Routine Labs on day of discharge: Labs from last 24 hours 01/31/23 01/31/23 01/30/23 07:49 05:59 21:44 WBC 8.1 RBC 3.22 L Hgb 9.9 L Hct 30.4 L MCV 94.4 MCH 30.7 MCHC 32.6 RDW 12.6 Plt Count 270 MPV 9.9 Immature Gran % (Auto) 0.2 Neut % (Auto) 60.5 Lymph % (Auto) 25.7 [place] % (Auto) 10.5 H Eos % (Auto) 2.7 Baso % (Auto) 0.4 Lymph # (Auto) 2.08 [place] # (Auto) 0.9 H Eos # (Auto) 0.2 Baso # (Auto) 0.0 Abs Immat Gran (auto) 0.02 Absolute Neuts (auto) 4.9 Absolute Nucleated RBC 0.0 Nucleated RBC % 0.0 Sodium 135 L Potassium 3.5 Chloride 102 Carbon Dioxide 28 Anion Gap 5 L BUN 17 Creatinine 0.60 L Estim Creat Clear Calc 107 Estimated GFR > 60 Glucose 199 H POC Capillary Glucose 177 H 353 H Calcium 8.4 Total Bilirubin 0.6 AST 36 ALT 55 H Alkaline Phosphatase 57 Total Protein 6.0 L Albumin 2.9 L 01/30/23 01/30/23 17:09 11:47 WBC RBC Hgb Hct MCV MCH MCHC RDW Plt Count MPV Immature Gran % (Auto) Neut % (Auto) Lymph % (Auto) [place] % (Auto) Eos % (Auto) Baso % (Auto) Lymph # (Auto) [place] # (Auto) Eos # (Auto) Baso # (Auto) Abs Immat Gran (auto) Absolute Neuts (auto) Absolute Nucleated RBC Nucleated RBC % Sodium Potassium Chloride Carbon Dioxide Anion Gap BUN Creatinine Estim Creat Clear Calc Estimated GFR Glucose POC Capillary Glucose 266 H 177 H Calcium Total Bilirubin AST ALT Alkaline Phosphatase Total Protein Albumin Discharge Plan Discharge Consulting providers: Belen Jacinto Discharging Clinician: Olu Skelton Patient Disposition: Home, Self-Care Activity: as tolerated Diet: as tolerated Stand Alone Forms: General Discharge Instructions Follow-up/Referrals: Olu Skelton MD [Physician] - Marcel Felipe MD [Primary Care Provider] - Discharge Medications: New oxycodone-acetaminophen 5-325 mg tablet 1 tablet PO Q4H PRN (Reason: pain) Qty: 25 0RF ondansetron 8 mg tablet,disintegrating 8 mg PO Q8H Qty: 20 0RF Continued diclofenac sodium 75 mg tablet,delayed release (DR/EC) 75 mg PO BID estradiol 2 mg tablet 2 mg PO DAILY insulin aspart U-100 [Novolog U-100 Insulin aspart] 100 unit/mL solution 0.12 unit continuous subcutaneous infusion DAILY ergocalciferol (vitamin D2) 1,250 mcg (50,000 unit) capsule 1,250 mcg PO MONTHLY Patient Comments: PT TAKES END OF MONTH pregabalin 75 mg capsule 75 mg PO DAILY Qty: 90 0RF Patient Comments: TAKES
[2023-01-31 15:29] LABS: Glucose Point of Care 410 mg/dl (65-105)
== END 2023-01-31 10:45 | disposition home or self-care (01) ==
LOC: ANHSURGERY 09:40 → ANHOB2 09:40 → ANH3MED 01-30 01:39
PROVIDERS: Internal Medicine; Student in an Organized Health Care Education/Training Program; Admitting Provider Obstetrics & Gynecology; PCP Family Medicine; Visit Provider Obstetrics & Gynecology
PROC: 0UT9FZZ Resection of Uterus, Via Natural or Artificial Opening With Percutaneous Endoscopic Assistance (ICD-10-PCS; CPT 58573; principal; 2023-01-27 07:30)
DX: R10.2 Pelvic and perineal pain (principal); N88.8 Other specified noninflammatory disorders of cervix uteri; D25.9 Leiomyoma of uterus, unspecified; D27.0 Benign neoplasm of right ovary; N83.11 Corpus luteum cyst of right ovary; D64.9 Anemia, unspecified; F41.9 Anxiety disorder, unspecified; R09.02 Hypoxemia; K21.9 Gastro-esophageal reflux disease without esophagitis; E78.5 Hyperlipidemia, unspecified; I10 Essential (primary) hypertension; E11.65 Type 2 diabetes mellitus with hyperglycemia; R11.2 Nausea with vomiting, unspecified; E87.6 Hypokalemia; E55.9 Vitamin D deficiency, unspecified; R94.31 Abnormal electrocardiogram [ECG] [EKG]; F17.210 Nicotine dependence, cigarettes, uncomplicated; F10.90 Alcohol use, unspecified, uncomplicated; Z79.82 Long term (current) use of aspirin; Z79.3 Long term (current) use of hormonal contraceptives; Z79.4 Long term (current) use of insulin; Z79.1 Long term (current) use of non-steroidal anti-inflammatories (NSAID); Z79.899 Other long term (current) drug therapy; E66.9 Obesity, unspecified; Z68.34 Body mass index [BMI] 34.0-34.9, adult
CPT/HCPCS: 58573; 36415; 71045; 74177; 80048; 80053; 82948; 83036; 83605; 83690; 83735; 85014; 85018; 85025; 86850; 86900; 86901; 88307; 93005; 99199; A9270; C9113; G0378; J0360; J0690; J1100; J1170; J1200; J1815; J1885; J2060; J2250; J2371; J2405; J2550; J2704; J2765; J3010; J7030; J7120; Q9967

== ENCOUNTER → 2023-05-15 08:01 | Outpatient (CLI) | payer OTHER, SELFPAY ==
--- NOTE | ~2023-05-15 | XR_ITS ---
EXAM: XR cervical spine 4-5V DATE: 05/15/2023 09:16 HISTORY: M54.2 - Cervicalgia . COMPARISON: None available. FINDINGS: Craniocervical association and atlantoaxial joint are aligned. No prevertebral soft tissue swelling. Vertebral bodies are aligned. Vertebral body heights are maintained. Mild degenerative jack nge at the atlantodental interval. Marginal osteophytosis at C5-6. Mild disc space narrowing and mode rate marginal osteophytosis at C6/7. Normal facets and posterior elements. Likely carotid bifurcation atherosclerotic calcifications. IMPRESSION: Multilevel degenerative disc disease, mild at C5-6 and moderate at C6-7. Reviewed, dictated and finalized at location K. 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
--- NOTE | ~2023-05-15 | XR_ITS ---
EXAM: XR shoulder RT min 2V DATE: 05/15/2023 09:16 HISTORY: M25.511 - Pain in right shoulder . COMPARISON: None available. FINDINGS: Normal mineralization. No fracture or dislocation. No lytic or blastic lesion. Moderate AC joint and mild glenohumeral joint degenerative change. Coracoclavicular ligament calcification. No e rosion or periosteal change. Soft tissues within normal limits. IMPRESSION: Polyarticular right shoulder osteoarthritis. Reviewed, dictated and finalized at location K. [employer]ING BU[employer]ER
== END ==
PROVIDERS: PCP Physician Assistant; Visit Provider Physician Assistant
DX: M25.511 Pain in right shoulder (principal); M54.2 Cervicalgia; M50.322 Other cervical disc degeneration at C5-C6 level; M19.011 Primary osteoarthritis, right shoulder
CPT/HCPCS: 72050; 73030

== ENCOUNTER 2023-06-30 09:10 | Outpatient (CLI) | payer OTHER, SELFPAY ==
--- NOTE | ~2023-06-30 | MR_ITS ---
EXAMINATION: MR cervical spine wo con DATE: 06/30/2023 10:52 INDICATION: Cervicalgia TECHNIQUE: Magnetic resonance imaging (MRI) of the cervical spine was performed without intravenous c ontrast. Sequences included sagittal T2-weighted FSE, sagittal T2-weighted FS FSE, sagittal T1-weight ed FSE, axial MERGE and axial T2-weighted FSE. COMPARISON: None FINDINGS: Bone alignment is normal. Vertebral body heights are normal. Bone marrow signal intensity is normal . Annular fissure and mild disc height loss at C6-C7. Cord signal intensity is normal. Visualized cer vical soft tissues are unremarkable. The following disc levels are specifically discussed: C2-C3: The disc does not extend beyond the endplate margin. There is no uncovertebral joint osteoarth ritis. There is mild right facet joint osteoarthritis. There is no neural foraminal stenosis. There i s no central canal stenosis. C3-C4: The disc does not extend beyond the endplate margin. There is no uncovertebral joint osteoarth ritis. There is mild right facet joint osteoarthritis. There is no neural foraminal stenosis. There i s no central canal stenosis. C4-C5: The disc does not extend beyond the endplate margin. There is no uncovertebral joint osteoarth ritis. There is mild bilateral facet joint osteoarthritis. There is no neural foraminal stenosis. The re is no central canal stenosis. C5-C6: The disc does not extend beyond the endplate margin. There is mild bilateral uncovertebral janneth nt osteoarthritis. There is no facet joint osteoarthritis. There is no neural foraminal stenosis. The re is no central canal stenosis. C6-C7: Disc is mildly bulging with superimposed annular fissure and moderate size right paracentral d isc extrusion with disc material extending up to 8 mm cephalad to the level of the inferior endplate of C6 and measuring 1.2 cm left to right and 4-5 mm anteroposteriorly. The disc extrusion indents the right ventral surface of the cord. There is mild bilateral uncovertebral joint osteoarthritis. There is mild bilateral facet joint osteoarthritis. There is mild bilateral neural foraminal stenosis. The re is mild central canal stenosis. C7-T1: Annular fissure and small right paracentral disc protrusion. There is mild left uncovertebral joint osteoarthritis. There is mild left facet joint osteoarthritis. There is mild left neural forami nal stenosis. There is no central canal stenosis. IMPRESSION: 1. Mild cervical spondylosis most notable for a moderate-sized right paracentral disc extrusion at C6 -C7. Reviewed, dictated and finalized at location A. IMPRESSION: 1. Mild cervical spondylosis most notable for a moderate-sized right paracentra l disc extrusion at C6-C7.
== END 2023-06-30 09:11 | disposition home or self-care (01) ==
LOC: ANHIMG 09:11
PROVIDERS: PCP Family Medicine; Visit Provider Physician Assistant
DX: M43.02 Spondylolysis, cervical region (principal)
CPT/HCPCS: 72141

== ENCOUNTER 2023-08-13 14:10 | Outpatient (CLI) | payer OTHER, SELFPAY ==
--- NOTE | ~2023-08-13 | XR_ITS ---
EXAMINATION: XR chest 2V 08/13/2023 14:46 INDICATION: Cough PROCEDURE: 2 view chest COMPARISON: Comparison to multiple prior studies sequentially, with oldest reviewed study dated 05/2021. FINDINGS: The lungs are clear. The cardiomediastinal silhouette is within normal limits. There are no pleural effusions. There is no pneumothorax suspected. IMPRESSION: 1: NO ACUTE CARDIOPULMONARY DISEASE. Reviewed, dictated and finalized at location B.
== END 2023-08-13 14:11 | disposition home or self-care (01) ==
LOC: ANHIMG 14:12
PROVIDERS: PCP Family Medicine; Visit Provider Physician Assistant
DX: R05.9 Cough, unspecified (principal)
CPT/HCPCS: 71046